=== PATIENT | female | born 1990 | race Caucasian/White ===

== ENCOUNTER 2018-04-26 16:36 | Emergency (ER) | payer SELFPAY ==
[2018-04-26 16:43] VITALS: BP 130/75; PULSE 88; RESP 16; TEMP 37; O2SAT 98
[2018-04-26 18:00] VITALS: RESP 16
--- NOTE | 2018-04-26 19:26 | NUR.NOTE ---
pt noted to not be in [facility]. rn searched for pt and checked bathrooms it is believed the PT eloped Nursing Note:
--- NOTE | 2018-04-26 20:25 | NUR.NOTE ---
Nursing Note: went out to get pt and she was gone another pt stated that she told her that she was tied of waiting and left without being seen
== END 2018-04-26 19:19 ==
PROVIDERS: PCP Family Medicine
DX: Z53.21 Procedure and treatment not carried out due to patient leaving prior to being seen by health care provider (principal)

== ENCOUNTER 2018-06-22 18:14 | Emergency (ER) | payer SELFPAY ==
[2018-06-22 18:19] VITALS: BP 122/55; PULSE 86; RESP 18; TEMP 36.7; O2SAT 97
--- NOTE | 2018-06-22 18:49 | W.ED.GENAD ---
Discharge Plan Disposition Patient Disposition: HOME Condition: Stable Discharge Details Chief Complaint: GenMedical Clinical Impression: First trimester bleeding Primary Care Provider: Mikal Vasquez ED Provider: Bandar Forrester Discharge Instructions Instructions: First Trimester Vaginal Bleed (ED) Additional Instructions: Return immediately to the emergency department if you have any significant worsening of your bleeding, pain, or any further concerns. Otherwise please follow-up with diagnostic imaging tomorrow for outpatient ultrasound and follow-up with women's wellness tomorrow for arrangement of scheduling your appointment Referrals: [facility] [Provider Group] (Call the office tomorrow for arrangement of follow-up appointment) Discharge Data Discharge Date/Time-TO BE ENTERED AT DEPARTURE: 06/22/18 21:55 Medical Decision Making Patient presenting the emergency department for chief complaint of vaginal bleeding. Patient states very mild spotting that is been occurring over the past week. Patient accidentally missed her women's wellness appointment today for concern of possible miscarriage. This is patient's second with first ending in spontaneous miscarriage. Patient denies any pain or discomfort and states occasional cramping. Physical exam is unremarkable with no suprapubic tenderness. Plan to check labs for Rh type and quant as patient states that last menstrual period was approximately 1 month ago. Highly suspicious for threatened miscarriage but at this time doubt ectopic due to denying of pain and no pain on palpation of lower abdomen and suprapubic region. Review of patient's lab shows hCG quantitative that corresponds to approximately 4-6 weeks of otherwise nondiagnostic labs with no significant anemia noted. Did call and consult OB due to no ultrasound availability and poor weather conditions for transport. After discussion with Dr. Garay we both agree that patient is safe to be discharged home with close return precautions for any significant change in vaginal bleeding, increase in pain or discomfort, or further concerns by patient to return but at this time doubt ectopic . Concern for first trimester bleeding versus threatened miscarriage. Outpatient orders for ultrasound were placed in the computer for patient to obtain ultrasound tomorrow and to follow-up with women's wellness. Given patient's negative Rh type patient was given RhoGam as directed by Dr. Garay. after thorough discussion of return precautions patient states that she had low concern for ectopic with but was more concerned for miscarriage as she states very little pain but similar feeling to her previous miscarriage. After discussion of diagnosis and plan of care patient has no further needs, questions, or concerns and states clear understanding to return to the emergency department for any worsening symptoms or further concerns. Lab Data Lab results reviewed: Yes I reviewed the patient's lab results. HPI General Mode of arrival: ambulatory. Date/Time Provider Initiated Documentation: 06/22/18 18:23. Limitations to Documentation: no limitations. Information obtained by: patient and RN notes reviewed. History of Present Illness 27 year old F presents to the emergency department with the chief complaint of Vaginal bleed during early , described as mild, Quality is described as other (Occasional cramping, denies current pain), Patient started experiencing this week(s) (1) and it has been constant. No relieving factors improve symptom(s), No exacerbating factors reported . Patient notes no other symptoms.. Patient did receive the following treatments prior to arrival, none Related Data Allergies Allergy/AdvReac Type Severity Reaction Status Date / Time No Known Drug Allergies Allergy Verified 06/22/18 18:22 General Stated Complaint: GenMedical LUCY: 3 Review of Systems Constitutional Denies chills and Denies fever(s) Cardiovascular Denies chest pain and Denies dyspnea Respiratory Denies dyspnea Gastrointestinal Denies abdominal pain, Denies diarrhea, Denies nausea and Denies vomiting Genitourinary Reports as per HPI, Denies pelvic pain, Denies urinary incontinence, Denies urinary hesitancy, Denies urinary urgency, Denies vaginal discharge and Denies vaginal odor Integumentary/Breasts Denies erythema and Denies rash [facility] Medical History Hepatitis C (Chronic) Tobacco use disorder (Chronic 09/25/17) Social History Smoking and Tabacco status: Current every day Exam Const General: cooperative, no acute distress and not ill appearing Orientation: alert, awake and oriented x3 HENMT Mouth: moist mucous membranes Resp Effort & Inspection: normal respiratory effort, able to speak in complete sentences and no respiratory distress Cardio Rate: regular rate Rhythm: regular rhythm GI Inspection: normal to inspection Palpation: soft, no hepatosplenomegaly and nontender Auscultation: normal bowel sounds Back/Spine/Pelvis Back: no CVA tenderness Skin General skin exam: no rashes or lesions noted Course Vital Signs Temperature 36.7 C 02/25/19 18:19 Pulse 86 06/22/18 18:19 Respiratory Rate 18 06/22/18 18:19 Blood Pressure 122/55 L 06/22/18 18:19 Pulse Oximetry 97 06/22/18 18:19 Temperature 36.7 C 06/22/18 18:19 Temperature Source Skin 06/22/18 18:19 Pulse 86 06/22/18 18:19 Respiratory Rate 18 06/22/18 18:19 Blood Pressure 122/55 L 06/22/18 18:19 Pulse Oximetry 97 06/22/18 18:19 Oxygen Delivery Method Room Air 06/22/18 18:19 Oxygen Flow Rate 0 06/22/18 18:19 Pain Level 0 06/22/18 18:19 Lab/Test Results Lab/Test Results: POC- Test(urine) Positive
--- NOTE | 2018-06-22 18:54 | ED.GENADUL_ITS ---
Discharge Plan Disposition Patient Disposition: HOME Condition: Stable Discharge Details Chief Complaint: GenMedical Clinical Impression: First trimester bleeding Primary Care Provider: Mikal Vasquez ED Provider: Bandar Forrester Discharge Instructions Instructions: First Trimester Vaginal Bleed (ED) Additional Instructions: Return immediately to the emergency department if you have any significant worsening of your bleeding, pain, or any further concerns. Otherwise please follow-up with diagnostic imaging tomorrow for outpatient ultrasound and follow-up with women's wellness tomorrow for arrangement of scheduling your appointment Referrals: [facility] [Provider Group] (Call the office tomorrow for arrangement of follow-up appointment) Discharge Data Discharge Date/Time-TO BE ENTERED AT DEPARTURE: 06/22/18 21:55 Medical Decision Making Patient presenting the emergency department for chief complaint of vaginal bleeding. Patient states very mild spotting that is been occurring over the past week. Patient accidentally missed her women's wellness appointment today for concern of possible miscarriage. This is patient's second with first ending in spontaneous miscarriage. Patient denies any pain or discomfort and states occasional cramping. Physical exam is unremarkable with no suprapubic tenderness. Plan to check labs for Rh type and quant as patient states that last menstrual period was approximately 1 month ago. Highly suspicious for threatened miscarriage but at this time doubt ectopic due to denying of pain and no pain on palpation of lower abdomen and suprapubic region. Review of patient's lab shows hCG quantitative that corresponds to approximately 4-6 weeks of otherwise nondiagnostic labs with no significant anemia noted. Did call and consult OB due to no ultrasound availability and poor weather conditions for transport. After discussion with Dr. Garay we both agree that patient is safe to be discharged home with close return precautions for any significant change in vaginal bleeding, increase in pain or discomfort, or further concerns by patient to return but at this time doubt ectopic . Concern for first trimester bleeding versus threatened miscarriage. Outpatient orders for ultrasound were placed in the computer for patient to obtain ultrasound tomorrow and to follow-up with women's wellness. Given patient's negative Rh type patient was given RhoGam as directed by Dr. Garay. after thorough discussion of return precautions patient states that she had low concern for ectopic with but was more concerned for miscarriage as she states very little pain but similar feeling to her previous miscarriage. After discussion of diagnosis and plan of care patient has no further needs, questions, or concerns and states clear understanding to return to the emergency department for any worsening symptoms or further concerns. Lab Data Lab results reviewed: Yes I reviewed the patient's lab results. HPI General Mode of arrival: ambulatory . Date/Time Provider Initiated Documentation: 06/22/18 18:23 . Limitations to Documentation: no limitations . Information obtained by: patient and RN notes reviewed . History of Present Illness 27 year old F presents to the emergency department with the chief complaint of Vaginal bleed during early , described as mild, Quality is described as other (Occasional cramping, denies current pain), Patient started experiencing this week(s) (1) and it has been constant. No relieving factors improve symptom(s), No exacerbating factors reported . Patient notes no other symptoms.. Patient did receive the following treatments prior to arrival, none Related Data Allergies Allergy/AdvReac Type Severity Reaction Status Date / Time No Known Drug Allergies Allergy Verified 06/22/18 18:22 General Stated Complaint: GenMedical LUCY: 3 Review of Systems Constitutional Denies chills and Denies fever(s) Cardiovascular Denies chest pain and Denies dyspnea Respiratory Denies dyspnea Gastrointestinal Denies abdominal pain, Denies diarrhea, Denies nausea and Denies vomiting Genitourinary Reports as per HPI, Denies pelvic pain, Denies urinary incontinence, Denies urinary hesitancy, Denies urinary urgency, Denies vaginal discharge and Denies vaginal odor Integumentary/Breasts Denies erythema and Denies rash [facility] Medical History Hepatitis C (Chronic) Tobacco use disorder (Chronic 09/25/17) Social History Smoking and Tabacco status: Current every day Exam Const General: cooperative, no acute distress and not ill appearing Orientation: alert, awake and oriented x3 HENMT Mouth: moist mucous membranes Resp Effort & Inspection: normal respiratory effort, able to speak in complete sentences and no respiratory distress Cardio Rate: regular rate Rhythm: regular rhythm GI Inspection: normal to inspection Palpation: soft, no hepatosplenomegaly and nontender Auscultation: normal bowel sounds Back/Spine/Pelvis Back: no CVA tenderness Skin General skin exam: no rashes or lesions noted Course Vital Signs Temperature 36.7 C 02/25/19 18:19 Pulse 86 06/22/18 18:19 Respiratory Rate 18 06/22/18 18:19 Blood Pressure 122/55 L 06/22/18 18:19 Pulse Oximetry 97 06/22/18 18:19 Temperature 36.7 C 06/22/18 18:19 Temperature Source Skin 06/22/18 18:19 Pulse 86 06/22/18 18:19 Respiratory Rate 18 06/22/18 18:19 Blood Pressure 122/55 L 06/22/18 18:19 Pulse Oximetry 97 06/22/18 18:19 Oxygen Delivery Method Room Air 06/22/18 18:19 Oxygen Flow Rate 0 06/22/18 18:19 Pain Level 0 06/22/18 18:19 Lab/Test Results Lab/Test Results: POC- Test(urine) Positive
[2018-06-22 19:10] LABS: Bilirubin Negative (Negative); Blood Large (Negative); Clarity Sl Cloudy; Glucose Negative (Negative); Ketones Trace mg/dL (Negative); Leukocyte Esterase Negative (Negative); Nitrite Negative (Negative); Specific Gravity 1.025 (1.005-1.025); Urobilinogen 0.2 EU/dL (Up TO 0.2)
[2018-06-22 19:24] LABS: Abs Immature Grans 0.01 k/cumm (0.0-0.09); Absolute Basophil Count 0.03 k/cumm (0.0-0.2); Absolute Eosinophil Count 0.33 k/cumm (0.0-0.7); Absolute Lymphocyte Count 3.56 k/cumm (1.2-3.4); Absolute Monocyte Count 0.93 k/cumm (0.11-0.7); Absolute Neutrophil Count 5.27 k/cumm (1.2-6.7); Basophils % 0.3; Eosinophils % 3.3; HCT 39.4 % (36.0-46.0); HGB 13.4 g/dL (12.0-15.5); Immature Grans % 0.1; Lymphocytes % 35.1; Mean Corpuscular Hemoglobin 29.3 pg (27.0-33.0); Monocytes % 9.2; Platelet Count 289 x1000/uL (130-400); RBC 4.58 m/cumm (4.00-5.20); RBC Distribution Width 12.7 % (11.7-14.6); White Blood Cell Count 10.13 k/cumm (4.4-10.8)
[2018-06-22 19:41] LABS: Bacteria Many HPF (Negative); C & S Indicated? No/Sq. Contamination; Casts Negative LPF (Negative); Crystals Mod Calcium Oxalate HPF (Negative); Epithelial Cells Many HPF (Negative); Mucus Negative (Negative); Other Cells Negative (Negative)
[2018-06-22 20:04] LABS: ALT 36 U/L (12-78); AST 19 U/L (15-37); Albumin 3.5 g/dL (3.4-5.0); Alkaline Phosphatase 62 U/L (46-116); Anion Gap 5.3 mmol/L (3-11); BUN 7 mg/dL (7-18); Bilirubin, Total 0.3 mg/dL (0.2-1.0); CO2 28.7 mmol/L (21.0-32.0); CREATININE 0.76 mg/dL (0.55-1.02); Calcium 8.9 mg/dL (8.5-10.1); Chloride 105 mmol/L (98-107); Glucose 87 mg/dL (70-100); Potassium 3.5 mmol/L (3.5-5.1); Sodium 139 mmol/L (136-145); Total Protein 7.3 g/dL (6.4-8.2)
[2018-06-22 20:11] LABS: HCG Quant, Pregnancy 19422 mIU/mL (1-3)
== END 2018-06-22 21:55 | disposition home or self-care (01) ==
PROVIDERS: Emergency Provider Nurse Practitioner Family; PCP Family Medicine
DX: O20.9 Hemorrhage in early pregnancy, unspecified (principal); Z3A.01 Less than 8 weeks gestation of pregnancy
CPT/HCPCS: 36415; 80053; 86850; 86900; 86901; 90384; 96372; 99284; 81003; 81015; 84702; 85025; J2790

== ENCOUNTER 2018-06-23 08:37 | Outpatient (CLI) | payer SELFPAY ==
--- NOTE | 2018-06-23 12:03 | DI.US_ITS ---
SYMPTOMS/DIAGNOSIS: BLEEDING OBSTETRICAL ULTRASOUND: Many abnormalities cannot be diagnosed. A normal exam does not exclude a congenital anomaly. Radiology No. [id number] LMP: Exam Date: 06/23/18 [facility] wks days on EDC ([facility]) Confirmed: HISTORY: PREDICTED GESTATIONAL AGE NUMBER 6+2 weeks with a range of 5+2 weeks to 7+2 weeks. 1 Determined by___1STUS___LMP___HISTORY__X__ CRL PLACENTA PRESENTATION Grade 0 Cephalic___ Anterior___Posterior___ Breech____ Right Left Transverse(head right___ Fundal___Low-lying___Previa___ Transverse(head left___ Varying BIOMETRY AMNIOTIC FLUID BPD: mm weeks Normal HC: mm weeks Oligo Polyhydramnios AC: mm weeks FL: mm weeks AMNIOTIC FLUID INDEX >26 WK CRL: 5.2 mm 6+2 weeks Cisterna Magna: mm CI: RUQ: LUQ Cerebellum: cm EFW: grams Percentile RLQ: LLQ Total: cms Composite AGE= 6+2 wks EDC by US: 02/14/19 BIOPHYSICAL PROFILE ANATOMY IDENTIFIED SCORE 0/2 Heart: 4-Chamber___Rate:BPM 135 LVOT: RVOT: Amniotic Fluid(>2cms)____ Stomach: Kidneys: Respirations (>30 secs) Bladder: Post. Fossa: Body Flex/Extension 3 vessel cord: Ventricles: cord insertion: Lips:____ Extremity Flex/Extension spinal morphology: Nose: Total Score= Palate: NS=not seen COMMENTS: There is a single living intrauterine gestation. Estimated sonographic age is 6 weeks 2 days based on crown-rump length. cardiac motion was detected with a heart rate of 135 beats per minute. The yolk sac was identified. There is a 2.8 cm corpus luteal cyst on the right ovary. The left ovary is grossly unremarkable. IMPRESSION: Single living intrauterine gestation. Estimated sonographic age is 6 weeks 2 days.
== END 2018-06-23 08:57 ==
PROVIDERS: PCP Family Medicine; Visit Provider Nurse Practitioner Family
DX: Z34.91 Encounter for supervision of normal pregnancy, unspecified, first trimester (principal); O20.8 Other hemorrhage in early pregnancy; N83.11 Corpus luteum cyst of right ovary
CPT/HCPCS: 76817

== ENCOUNTER 2018-07-22 11:21 | Outpatient (CLI) | payer MEDICAID, SELFPAY ==
[2018-07-22 12:14] LABS: Abs Immature Grans 0.02 k/cumm (0.0-0.09); Absolute Basophil Count 0.01 k/cumm (0.0-0.2); Absolute Eosinophil Count 0.21 k/cumm (0.0-0.7); Absolute Lymphocyte Count 2.58 k/cumm (1.2-3.4); Absolute Monocyte Count 0.64 k/cumm (0.11-0.7); Absolute Neutrophil Count 4.88 k/cumm (1.2-6.7); Basophils % 0.1; Eosinophils % 2.5; HCT 37.6 % (36.0-46.0); HGB 12.7 g/dL (12.0-15.5); Immature Grans % 0.2; Lymphocytes % 30.9; Mean Corp. HGB Concentration 33.8 g/dL (32.0-36.0); Mean Corpuscular Hemoglobin 29.1 pg (27.0-33.0); Monocytes % 7.7; Neutrophils % 58.6; Platelet Count 284 x1000/uL (130-400); RBC 4.37 m/cumm (4.00-5.20); RBC Distribution Width 13.1 % (11.7-14.6); White Blood Cell Count 8.34 k/cumm (4.4-10.8)
[2018-07-22 14:53] LABS: TSH (W/Ref FT4) 1.72 uIU/mL (0.358-3.74)
[2018-07-23 10:17] LABS: Rubella IgG Ab (UVM) Positive; Syphilis Serology (RPR) Negative (Negative); Varicella IgG Antibody Positive
[2018-07-23 12:10] LABS: Hepatitis B Surface Ag Negative (NEGAT)
[2018-07-23 12:11] LABS: HIV-1/2 Ag & Ab Screen Negative (NEGAT)
[2018-07-23 12:13] LABS: Hepatitis C Ab w Rflx HCV PCR Reactive (NEGAT)
== END 2018-07-22 11:41 ==
PROVIDERS: PCP Family Medicine; Visit Provider Advanced Practice Midwife
DX: O26.899 Other specified pregnancy related conditions, unspecified trimester (principal); Z34.91 Encounter for supervision of normal pregnancy, unspecified, first trimester; Z67.91 Unspecified blood type, Rh negative; Z11.4 Encounter for screening for human immunodeficiency virus [HIV]; Z11.59 Encounter for screening for other viral diseases; Z01.84 Encounter for antibody response examination
CPT/HCPCS: 36415; 80055; 86787; 86803; 86850; 86900; 86901; 87340; 87389; 84443; 86592; 86762; 86870; 87522

== ENCOUNTER 2018-07-22 13:08 | Outpatient (REF) | payer MEDICAID, SELFPAY ==
[2018-07-22 14:18] LABS: *AMPHETAMINES SCREEN URINE Negative (Negative); *BARBITURATES SCREEN URINE Negative (Negative); *BENZODIAZEPINES SCREEN URINE Negative (Negative); Cannabinoids THC Negative (Negative); Cocaine Screen,Urine POSITIVE (Negative); METHADONE URINE SCREEN Negative (Negative); OPIATES URINE SCREEN Negative (Negative); Tricyclic Antidepressants Negative (Negative)
[2018-07-25 11:49] LABS: Buprenorphine Negative; Norbuprenorphine Negative
== END 2018-07-22 13:28 ==
LOC: LBN 13:08
PROVIDERS: PCP Family Medicine; Visit Provider Advanced Practice Midwife
DX: Z34.91 Encounter for supervision of normal pregnancy, unspecified, first trimester (principal)
CPT/HCPCS: 80307; 87086

== ENCOUNTER 2018-08-03 16:15 | Outpatient (REF) | payer MEDICAID, SELFPAY ==
[2018-08-03 18:00] LABS: *AMPHETAMINES SCREEN URINE Negative (Negative); *BARBITURATES SCREEN URINE Negative (Negative); *BENZODIAZEPINES SCREEN URINE Negative (Negative); Cannabinoids THC Negative (Negative); Cocaine Screen,Urine POSITIVE (Negative); METHADONE URINE SCREEN Negative (Negative); OPIATES URINE SCREEN Negative (Negative)
[2018-08-03 18:14] LABS: Tricyclic Antidepressants Negative (Negative)
[2018-08-06 15:54] LABS: Buprenorphine Negative; Norbuprenorphine Negative
== END 2018-08-03 16:35 ==
LOC: LBN 16:15
PROVIDERS: PCP Family Medicine; Visit Provider Advanced Practice Midwife
DX: O99.321 Drug use complicating pregnancy, first trimester (principal); F19.10 Other psychoactive substance abuse, uncomplicated; Z34.91 Encounter for supervision of normal pregnancy, unspecified, first trimester
CPT/HCPCS: 80307

== ENCOUNTER 2018-08-11 11:06 | Outpatient (CLI) | payer MEDICAID, SELFPAY ==
[2018-08-11 12:29] LABS: ALT 35 U/L (12-78); AST 21 U/L (15-37); Albumin 3.4 g/dL (3.4-5.0); Alkaline Phosphatase 56 U/L (46-116); Bilirubin, Direct 0.08 mg/dL (0.00-0.20); Bilirubin, Total 0.3 mg/dL (0.2-1.0); Total Protein 6.9 g/dL (6.4-8.2)
== END 2018-08-11 11:26 ==
PROVIDERS: PCP Family Medicine; Visit Provider Advanced Practice Midwife
DX: B19.20 Unspecified viral hepatitis C without hepatic coma (principal)
CPT/HCPCS: 36415; 80076

== ENCOUNTER 2018-08-18 01:22 | Outpatient (CLI) | payer MEDICAID, SELFPAY ==
--- NOTE | 2018-08-18 09:32 | DI.US_ITS ---
Predicted Gestational Age: Indication/History:substance abuse,z34.90 13.4 Wks Range: 12.4 to 14.4 Prior US done on: Determined by: First US LMP History EDC by prior US: 02/19/19 For multiple gestations: Baby PLACENTA: Grade: 0-I Location: Anterior Posterior PRESENTATION: RT LT LOW LYING PREVIA Cephalic Trans (Head RT LT ) Varied X Breech BIOMETRY: Anatomy Identified: BPD: 26 mm 14.3 wks 4 chamber Heart Heart Rate 147 BPM HC: 96 mm 14.3 wks LVOT Post Fossa AC: 85 mm 14.6 wks RVOT Ventricles FL: 13 mm 13.6 wks Stomach Nose Bladder Lips Cisterna Magna: mm CI: Kidneys Palate Cerebellum: mm 3 vessel cord Spine EFW: grms % Cord Insertion NS= not seen Composite Age (US) 14.3 wks Many abnormalities cannot be diagnosed. A normal exam does not exclude congenital abnormality. EDC by US 02/13/19 Amniotic Fluid Index: Normal COMMENTS: RUQ: LUQ: RLQ: LLQ: Total: cm Biophysical Profile: Score 0/2 TERRY (>2cm) Respirations (>30 sec) Body flexion/extension Extremity flexion/extension TOTAL SCORE Comparison is made with 06/23/18. The fetus was in variable position during the exam. The placenta is fundal. The biometric measurements correspond to 14 weeks 3 days and an EDC of 02/13/19. cardiac activity is identified. No gross deformities. The amount of amniotic fluid appears normal. IMPRESSION: size is within normal limits.
== END 2018-08-18 01:42 ==
PROVIDERS: PCP Family Medicine; Visit Provider Advanced Practice Midwife
DX: Z34.92 Encounter for supervision of normal pregnancy, unspecified, second trimester (principal); O99.322 Drug use complicating pregnancy, second trimester
CPT/HCPCS: 76815

== ENCOUNTER 2018-08-21 17:40 | Outpatient (REF) | payer MEDICAID, SELFPAY ==
[2018-08-21 21:06] LABS: *AMPHETAMINES SCREEN URINE Negative (Negative); *BARBITURATES SCREEN URINE Negative (Negative); *BENZODIAZEPINES SCREEN URINE Negative (Negative); Cannabinoids THC Negative (Negative); Cocaine Screen,Urine Negative (Negative); METHADONE URINE SCREEN Negative (Negative); OPIATES URINE SCREEN Negative (Negative)
[2018-08-21 21:24] LABS: Tricyclic Antidepressants Negative (Negative)
== END 2018-08-21 18:00 ==
LOC: LBN 17:40
PROVIDERS: PCP Family Medicine; Visit Provider Advanced Practice Midwife
DX: F14.10 Cocaine abuse, uncomplicated (principal); O99.322 Drug use complicating pregnancy, second trimester; Z34.92 Encounter for supervision of normal pregnancy, unspecified, second trimester
CPT/HCPCS: 80307

== ENCOUNTER 2018-08-31 14:13 | Outpatient (CLI) | payer MEDICAID, SELFPAY ==
[2018-08-31 14:27] LABS: Bilirubin Negative (Negative); Blood Negative (Negative); Clarity Clear; Glucose Negative (Negative); Ketones 15 mg/dL (Negative); Leukocyte Esterase Negative (Negative); Nitrite Negative (Negative); Specific Gravity >= 1.030 (1.005-1.025); Urobilinogen 0.2 EU/dL (Up TO 0.2)
[2018-09-03 16:19] LABS: HSV 1 PCR, Varies Positive (Negative); HSV 2 PCR, Varies Negative (Negative)
== END 2018-08-31 14:33 ==
PROVIDERS: PCP Family Medicine; Visit Provider Advanced Practice Midwife
DX: Z34.92 Encounter for supervision of normal pregnancy, unspecified, second trimester (principal); K62.89 Other specified diseases of anus and rectum
CPT/HCPCS: 87529; 81003; 87086

== ENCOUNTER 2018-09-29 12:56 | Outpatient (REF) | payer MEDICAID, SELFPAY ==
[2018-09-29 14:14] LABS: *AMPHETAMINES SCREEN URINE Negative (Negative); *BARBITURATES SCREEN URINE Negative (Negative); *BENZODIAZEPINES SCREEN URINE Negative (Negative); Cannabinoids THC Negative (Negative); Cocaine Screen,Urine Negative (Negative); METHADONE URINE SCREEN Negative (Negative); OPIATES URINE SCREEN Negative (Negative)
[2018-09-29 14:16] LABS: Tricyclic Antidepressants Negative (Negative)
[2018-10-05 07:55] LABS: Buprenorphine Negative; Norbuprenorphine Negative
== END 2018-09-29 13:16 ==
LOC: LBN 12:56
PROVIDERS: PCP Family Medicine; Visit Provider Advanced Practice Midwife
DX: Z34.93 Encounter for supervision of normal pregnancy, unspecified, third trimester (principal)
CPT/HCPCS: 80307

== ENCOUNTER 2018-10-21 12:45 | Outpatient (REF) | payer MEDICAID, SELFPAY ==
[2018-10-21 20:07] LABS: *AMPHETAMINES SCREEN URINE Negative (Negative); *BARBITURATES SCREEN URINE Negative (Negative); *BENZODIAZEPINES SCREEN URINE Negative (Negative); Cannabinoids THC Negative (Negative); Cocaine Screen,Urine Negative (Negative); METHADONE URINE SCREEN Negative (Negative); OPIATES URINE SCREEN Negative (Negative)
[2018-10-21 20:20] LABS: Tricyclic Antidepressants Negative (Negative)
== END 2018-10-21 13:05 ==
LOC: NCHCN 12:45
PROVIDERS: PCP Family Medicine; Visit Provider Advanced Practice Midwife
DX: O26.899 Other specified pregnancy related conditions, unspecified trimester (principal); R30.0 Dysuria; Z34.90 Encounter for supervision of normal pregnancy, unspecified, unspecified trimester
CPT/HCPCS: 80307; 87086

== ENCOUNTER 2018-11-12 11:13 | Outpatient (REF) | payer MEDICAID, SELFPAY ==
[2018-11-12 12:17] LABS: *AMPHETAMINES SCREEN URINE Negative (Negative); *BARBITURATES SCREEN URINE Negative (Negative); *BENZODIAZEPINES SCREEN URINE Negative (Negative); Cannabinoids THC Negative (Negative); Cocaine Screen,Urine Negative (Negative); METHADONE URINE SCREEN Negative (Negative); OPIATES URINE SCREEN Negative (Negative)
[2018-11-12 12:18] LABS: Tricyclic Antidepressants Negative (Negative)
== END 2018-11-12 11:33 ==
LOC: LBN 11:13
PROVIDERS: PCP Family Medicine; Visit Provider Advanced Practice Midwife
DX: Z34.93 Encounter for supervision of normal pregnancy, unspecified, third trimester (principal)
CPT/HCPCS: 80307

== ENCOUNTER 2018-12-01 09:52 | Outpatient (CLI) | payer MEDICAID, SELFPAY ==
[2018-12-01 10:23] LABS: HCT 34.4 % (36.0-46.0); HGB 11.9 g/dL (12.0-15.5); Mean Corp. HGB Concentration 34.6 g/dL (32.0-36.0); Mean Corpuscular Hemoglobin 30.3 pg (27.0-33.0); Mean Corpuscular Volume 87.5 fL (80-95); Mean Platelet Volume 9.8 fL (8.0-11.0); Platelet Count 288 x1000/uL (130-400); RBC 3.93 m/cumm (4.00-5.20); RBC Distribution Width 12.6 % (11.7-14.6); White Blood Cell Count 14.79 k/cumm (4.4-10.8)
[2018-12-01 10:26] LABS: Glucose,1 Hr (Glucola) 146 mg/dL (80-140)
== END 2018-12-01 10:12 ==
PROVIDERS: PCP Family Medicine; Visit Provider Advanced Practice Midwife
DX: Z34.93 Encounter for supervision of normal pregnancy, unspecified, third trimester (principal)
CPT/HCPCS: 36415; 81511; 82950; 85027; 86850; 90384

== ENCOUNTER 2018-12-17 10:48 | Outpatient (CLI) | payer MEDICAID, SELFPAY ==
[2018-12-17 13:54] LABS: Fetal Fibronectin Positive (Negative)
== END 2018-12-17 11:08 ==
PROVIDERS: PCP Family Medicine; Visit Provider Advanced Practice Midwife
DX: O36.8130 Decreased fetal movements, third trimester, not applicable or unspecified (principal); Z3A.30 30 weeks gestation of pregnancy
CPT/HCPCS: 59025; 82731; 87086; 87480; 87510; 87660

== ENCOUNTER 2018-12-17 18:34 | Outpatient (REF) | payer MEDICAID, SELFPAY | END 2018-12-17 18:54 | LOC: LBN 18:34 | PROVIDERS: PCP Family Medicine; Visit Provider Advanced Practice Midwife | DX: Z34.93 Encounter for supervision of normal pregnancy, unspecified, third trimester (principal) | CPT/HCPCS: 87086 ==

== ENCOUNTER 2018-12-18 01:05 | Outpatient (CLI) | payer MEDICAID, SELFPAY ==
--- NOTE | 2018-12-18 12:27 | DI.US_ITS ---
SYMPTOM/DIAGNOSIS: S,D AND RECOMMENDED BY [facility] Z34.90 F19.20 OBSTETRICAL ULTRASOUND: Routine examination was performed. There is a single living intrauterine gestation. Estimated sonographic age is 31 weeks 1 day. The fetus is in the cephalic presentation. heart rate is 147 BPM. A complete anatomic evaluation was not performed at this time. Estimated weight is 1702 grams which is 41st percentile. Amniotic fluid index is 17.4 cm. Visually amniotic fluid appears within normal limits. The placenta is fundal and posterior. No evidence of previa. Cervical length measures 4.7 cm. IMPRESSION: Single living intrauterine gestation. Estimated sonographic age is 31 weeks 1 day. Predicted Gestational Age: Indication/History: 31 +0 Wks Range: 30 +0 to 32 +0 Prior US done on: Determined by: XX First US LMP History EDC by prior US: 02/19/19 For multiple gestations: Baby PLACENTA: Grade: II Location: XX Anterior Posterior PRESENTATION: FUNDAL POSTERIOR Cephalic XX Trans (Head RT LT ) Varied Breech BIOMETRY: Anatomy Identified: BPD: 78 mm 31 +1 wks 4 chamber Heart XX Heart Rate 147 BPM HC: 284 mm 31 +1 wks LVOT Post Fossa AC: 270 mm 31 +1 wks RVOT Ventricles FL: 60 mm 31 +1 wks Stomach XX Nose Bladder Lips Cisterna Magna: mm CI: 83 Kidneys Palate Cerebellum: mm 3 vessel cord Spine EFW: 1702 grms 41 % Cord Insertion NS= not seen Composite Age (US) 31 +1 wks Many abnormalities cannot be diagnosed. A normal exam does not exclude congenital abnormality. EDC by US 02/18/19 Amniotic Fluid Index: Normal COMMENTS: RUQ: 4.24 LUQ: 4.63 RLQ: 5.57 LLQ: 2.98 Total: 17.4 cm Biophysical Profile: Score 0/2 TERRY (>2cm) Respirations (>30 sec) Body flexion/extension Extremity flexion/extension TOTAL SCORE
== END 2018-12-18 01:25 ==
PROVIDERS: PCP Family Medicine; Visit Provider Advanced Practice Midwife
DX: F19.20 Other psychoactive substance dependence, uncomplicated (principal); O99.323 Drug use complicating pregnancy, third trimester
CPT/HCPCS: 76816

== ENCOUNTER 2018-12-28 12:49 | Emergency (ER) | payer MEDICAID, SELFPAY ==
[2018-12-28 12:57] VITALS: BP 120/67; PULSE 73; RESP 16; TEMP 36.6; O2SAT 97
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
[2018-12-28 14:30] VITALS: BP 120/67; PULSE 76; RESP 16; O2SAT 98
== END 2018-12-28 14:30 | disposition home or self-care (01) ==
PROVIDERS: Emergency Provider Student in an Organized Health Care Education/Training Program; PCP Family Medicine
DX: S09.90XA Unspecified injury of head, initial encounter (principal); S09.93XA Unspecified injury of face, initial encounter; W50.0XXA Accidental hit or strike by another person, initial encounter; Z3A.34 34 weeks gestation of pregnancy; O99.333 Smoking (tobacco) complicating pregnancy, third trimester; F17.210 Nicotine dependence, cigarettes, uncomplicated; Z53.29 Procedure and treatment not carried out because of patient's decision for other reasons
CPT/HCPCS: 99282; 99283

== ENCOUNTER 2019-01-21 10:54 | Observation (INO) | payer MEDICAID, SELFPAY ==
[2019-01-21 11:51] LABS: HCT 37.2 % (36.0-46.0); HGB 12.4 g/dL (12.0-15.5); Mean Corp. HGB Concentration 33.3 g/dL (32.0-36.0); Mean Corpuscular Hemoglobin 28.9 pg (27.0-33.0); Mean Corpuscular Volume 86.7 fL (80-95); Mean Platelet Volume 10.8 fL (8.0-11.0); Platelet Count 227 x1000/uL (130-400); RBC 4.29 m/cumm (4.00-5.20); RBC Distribution Width 13.4 % (11.7-14.6); White Blood Cell Count 9.64 k/cumm (4.4-10.8)
[2019-01-21 12:09] LABS: ALT 22 U/L (14-59); AST 16 U/L (15-37); Albumin 2.6 g/dL (3.4-5.0); Alkaline Phosphatase 136 U/L (46-116); Anion Gap 9.3 mmol/L (3-11); BUN 6 mg/dL (7-18); Bilirubin, Total 0.2 mg/dL (0.2-1.0); CO2 21.7 mmol/L (21.0-32.0); CREATININE 0.63 mg/dL (0.55-1.02); Calcium 9.2 mg/dL (8.5-10.1); Chloride 105 mmol/L (98-107); Glucose 97 mg/dL (70-100); Potassium 3.4 mmol/L (3.5-5.1); Sodium 136 mmol/L (136-145); Total Protein 6.9 g/dL (6.4-8.2)
--- NOTE | 2019-01-21 12:09 | DI.US_ITS ---
EXAM: US OB BIOPHYSICAL PROFILE CLINICAL HISTORY: active cocaine, intrauterine at 36+4 weeks. TECHNIQUE: Ultrasound performed using standard protocol. COMPARISON: US OB 2-3 trimester from 12/18/2018 US OB TERRY AND WEIGHT from 01/21/2019 FINDINGS: Biophysical profile score is 8/8. Please see the attached data sheet.
[2019-01-21 14:42] LABS: PROTEIN 39.4 mg/dL
[2019-01-21 14:44] LABS: COMMENT (LAB VIEW ONLY) 260.09 mg/dL; Prot/Crea Ur Ratio 0.15
[2019-01-21 14:55] LABS: *AMPHETAMINES SCREEN URINE Negative (Negative); *BARBITURATES SCREEN URINE Negative (Negative); *BENZODIAZEPINES SCREEN URINE Negative (Negative); Cannabinoids THC Negative (Negative); Cocaine Screen,Urine POSITIVE (Negative); METHADONE URINE SCREEN Negative (Negative); OPIATES URINE SCREEN Negative (Negative)
[2019-01-21 14:57] LABS: Tricyclic Antidepressants Negative (Negative)
[2019-01-21 16:00] LABS: Uric Acid 5.7 mg/dL (2.6-6.0)
[2019-01-25 09:26] LABS: Buprenorphine Negative; Norbuprenorphine Negative
== END 2019-01-21 15:55 | disposition home or self-care (01) ==
PROVIDERS: Advanced Practice Midwife; Admitting Provider Advanced Practice Midwife; PCP Family Medicine; Visit Provider Advanced Practice Midwife
DX: O99.323 Drug use complicating pregnancy, third trimester (principal); O98.313 Other infections with a predominantly sexual mode of transmission complicating pregnancy, third trimester; O99.333 Smoking (tobacco) complicating pregnancy, third trimester; O98.413 Viral hepatitis complicating pregnancy, third trimester; Z36.85 Encounter for antenatal screening for Streptococcus B; F14.90 Cocaine use, unspecified, uncomplicated; F17.210 Nicotine dependence, cigarettes, uncomplicated; Z3A.36 36 weeks gestation of pregnancy; A60.09 Herpesviral infection of other urogenital tract; B19.20 Unspecified viral hepatitis C without hepatic coma
CPT/HCPCS: 36415; 76815; 76816; 80053; 80307; 85027; 86850; 86900; 86901; 96360; 96361; 59025; 76819; 82565; 84156; 84550; 87081; G0378

== ENCOUNTER 2019-01-28 17:12 | Outpatient (REF) | payer MEDICAID, SELFPAY ==
[2019-01-28 14:16] LABS: PROTEIN 23.7 mg/dL
[2019-01-28 14:18] LABS: *AMPHETAMINES SCREEN URINE Negative (Negative); *BARBITURATES SCREEN URINE Negative (Negative); *BENZODIAZEPINES SCREEN URINE Negative (Negative); Cannabinoids THC Negative (Negative); Cocaine Screen,Urine Negative (Negative); METHADONE URINE SCREEN Negative (Negative); OPIATES URINE SCREEN Negative (Negative)
[2019-01-28 14:19] LABS: COMMENT (LAB VIEW ONLY) 98.37 mg/dL; Prot/Crea Ur Ratio 0.24; Tricyclic Antidepressants Negative (Negative)
[2019-02-02 10:42] LABS: Buprenorphine Negative; Norbuprenorphine Negative
== END 2019-01-28 17:32 ==
LOC: LBN 17:12
PROVIDERS: PCP Family Medicine; Referring Provider Advanced Practice Midwife; Visit Provider Advanced Practice Midwife
DX: F19.20 Other psychoactive substance dependence, uncomplicated (principal); O14.93 Unspecified pre-eclampsia, third trimester
CPT/HCPCS: 80307; 82565; 84156

== ENCOUNTER 2019-01-29 11:00 | Observation (INO) | payer MEDICAID, SELFPAY | END 2019-01-29 11:45 | disposition home or self-care (01) | LOC: OBS 12:40 | PROVIDERS: Admitting Provider Advanced Practice Midwife; PCP Family Medicine; Visit Provider Advanced Practice Midwife | DX: O47.1 False labor at or after 37 completed weeks of gestation (principal); Z3A.37 37 weeks gestation of pregnancy; Z03.71 Encounter for suspected problem with amniotic cavity and membrane ruled out | CPT/HCPCS: 87210; G0378 ==

== ENCOUNTER 2019-01-29 15:30 | Inpatient (IN) | payer MEDICAID, SELFPAY ==
[2019-01-29 18:04] LABS: HCT 36.2 % (36.0-46.0); HGB 12.3 g/dL (12.0-15.5); Mean Corpuscular Hemoglobin 29.6 pg (27.0-33.0); Mean Platelet Volume 10.8 fL (8.0-11.0); Platelet Count 259 x1000/uL (130-400); RBC 4.16 m/cumm (4.00-5.20)
[2019-01-29 18:22] LABS: *AMPHETAMINES SCREEN URINE Negative (Negative); *BARBITURATES SCREEN URINE Negative (Negative); *BENZODIAZEPINES SCREEN URINE Negative (Negative); Cannabinoids THC Negative (Negative); Cocaine Screen,Urine Negative (Negative); METHADONE URINE SCREEN Negative (Negative); OPIATES URINE SCREEN Negative (Negative)
[2019-01-29 18:24] LABS: Tricyclic Antidepressants Negative (Negative)
[2019-01-29] MEDS: miSOPROStol 25 MCG TAB 50 MCG PO (18:30)
[2019-01-30] MEDS: Nicotine 4 MG GUM CH (00:13)
[2019-01-30] MEDS: miSOPROStol 50 MCG TAB PO ×2 (08:37→12:57)
[2019-01-30] MEDS: Nicotine 21 MG/24 HR PATCH TD (08:39)
[2019-01-31 07:11] LABS: HCT 34.8 % (36.0-46.0); HGB 11.7 g/dL (12.0-15.5); Mean Corp. HGB Concentration 33.6 g/dL (32.0-36.0); Mean Corpuscular Hemoglobin 29.6 pg (27.0-33.0); Mean Corpuscular Volume 88.1 fL (80-95); Mean Platelet Volume 10.9 fL (8.0-11.0); Platelet Count 236 x1000/uL (130-400); RBC 3.95 m/cumm (4.00-5.20); RBC Distribution Width 14.1 % (11.7-14.6); White Blood Cell Count 11.78 k/cumm (4.4-10.8)
[2019-01-31] MEDS: Hamamelis Leaf/Glycerin 100 EACH BOX PR (09:19)
[2019-01-31] MEDS: Ibuprofen 600 MG TAB PO (09:24)
[2019-01-31] MEDS: Acetaminophen 325 MG TAB 650 MG PO (09:24)
[2019-02-01 13:48] LABS: HIV-1/2 Ag & Ab Screen Negative (NEGAT)
== END 2019-01-31 10:30 | disposition other institution (70) | DRG 806 ==
PROVIDERS: Admitting Provider Advanced Practice Midwife; PCP Family Medicine; Visit Provider Advanced Practice Midwife
DX: O42.02 Full-term premature rupture of membranes, onset of labor within 24 hours of rupture (principal); O98.42 Viral hepatitis complicating childbirth; Z37.0 Single live birth; O98.52 Other viral diseases complicating childbirth; O99.324 Drug use complicating childbirth; O69.89X0 Labor and delivery complicated by other cord complications, not applicable or unspecified; Z3A.37 37 weeks gestation of pregnancy; B19.20 Unspecified viral hepatitis C without hepatic coma; B00.9 Herpesviral infection, unspecified; O99.344 Other mental disorders complicating childbirth; F41.8 Other specified anxiety disorders; F14.10 Cocaine abuse, uncomplicated; Z60.9 Problem related to social environment, unspecified; O75.89 Other specified complications of labor and delivery; Z67.11 Type A blood, Rh negative; O99.334 Smoking (tobacco) complicating childbirth; F17.210 Nicotine dependence, cigarettes, uncomplicated
CPT/HCPCS: 36415; 80053; 80307; 85027; 85461; 86850; 86900; 86901; 87389; 90384; 84550; J2790; J3490

== ENCOUNTER 2019-02-15 12:34 | Outpatient (REF) | payer MEDICAID, SELFPAY | END 2019-02-15 12:54 | LOC: LBN 12:34 | PROVIDERS: PCP Family Medicine; Visit Provider Advanced Practice Midwife | DX: R30.0 Dysuria (principal) | CPT/HCPCS: 87086 ==

== ENCOUNTER 2019-03-16 19:55 | Outpatient (CLI) | payer MEDICAID, SELFPAY | END 2019-03-16 20:15 | PROVIDERS: PCP Family Medicine; Visit Provider Advanced Practice Midwife | DX: Z3A.37 37 weeks gestation of pregnancy (principal) ==

== ENCOUNTER 2019-07-14 11:58 | Outpatient (REF) | payer MEDICAID, SELFPAY ==
[2019-07-14 14:15] LABS: *AMPHETAMINES SCREEN URINE Negative (Negative); *BARBITURATES SCREEN URINE Negative (Negative); *BENZODIAZEPINES SCREEN URINE Negative (Negative); Cannabinoids THC Negative (Negative); Cocaine Screen,Urine POSITIVE (Negative); METHADONE URINE SCREEN Negative (Negative); OPIATES URINE SCREEN Negative (Negative)
[2019-07-14 14:18] LABS: Tricyclic Antidepressants Negative (Negative)
[2019-07-17 10:12] LABS: Buprenorphine Negative; Norbuprenorphine Negative
== END 2019-07-14 12:18 ==
LOC: LBN 11:58
PROVIDERS: PCP Nurse Practitioner; Visit Provider Advanced Practice Midwife
DX: F14.10 Cocaine abuse, uncomplicated (principal); F32.89 Other specified depressive episodes
CPT/HCPCS: 80307

== ENCOUNTER 2019-09-03 03:17 | Outpatient (CLI) | payer MEDICAID, SELFPAY ==
[2019-09-03 13:22] LABS: HCG Quant, Pregnancy 6615 mIU/mL (1-3)
== END 2019-09-03 03:37 ==
PROVIDERS: Nurse Practitioner Women's Health; PCP Internal Medicine; Visit Provider Nurse Practitioner Family
DX: Z32.01 Encounter for pregnancy test, result positive (principal)
CPT/HCPCS: 36415; 84702

== ENCOUNTER 2020-12-16 10:36 | Emergency (ER) | payer MEDICAID, SELFPAY ==
[2020-12-16 10:42] VITALS: BP 126/81; PULSE 72; RESP 16; TEMP 37.1; O2SAT 99
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
[2020-12-16] MEDS: Normal Saline 1,000 ML 1000 ML IV (11:17)
[2020-12-16 11:18] LABS: Abs Immature Grans 0.02 10^3/uL (0.0-0.06); Absolute Basophil Count 0.03 10^3/uL (0.0-0.2); Absolute Eosinophil Count 0.29 10^3/uL (0.0-0.7); Absolute Lymphocyte Count 2.04 10^3/uL (1.2-3.4); Absolute Monocyte Count 0.62 10^3/uL (0.1-0.8); Absolute Neutrophil Count 4.69 10^3/uL (1.2-6.7); Basophils % 0.4; Eosinophils % 3.8; HCT 43.2 % (36.0-46.0); HGB 14.4 g/dL (11.2-15.7); Immature Grans % 0.3; Lymphocytes % 26.5; MCH 29.5 pg (27.0-33.0); MCHC 33.3 % (32.0-36.0); MCV 88.5 fL (80-95); MPV 9.8 fL (8.0-11.0); Monocytes % 8.1; Neutrophils % 60.9; Nucleated RBC 0 %; Platelet Count 257 10^3/uL (130-400); RBC 4.88 10^6/uL (3.93-5.22); RDW 12.2 % (11.7-14.6); RDW-SD 40.2 fL; WBC 7.69 10^3/uL (4.4-10.8)
[2020-12-16 11:24] LABS: ALT 51 U/L (14-59); AST 29 U/L (15-37); Albumin 4.1 g/dL (3.4-5.0); Alkaline Phosphatase 65 U/L (46-116); Anion Gap 10.6 mmol/L (3-11); BUN 14 mg/dL (7-18); Bilirubin, Total 0.5 mg/dL (0.2-1.0); CO2 26.4 mmol/L (21.0-32.0); CREATININE 0.9 mg/dL (0.55-1.02); Calcium 9.2 mg/dL (8.5-10.1); Chloride 104 mmol/L (98-107); Glucose 148 mg/dL (74-106); Potassium 3.4 mmol/L (3.5-5.1); Sodium 141 mmol/L (136-145); Total Protein 8.1 g/dL (6.4-8.2)
[2020-12-16] MEDS: Omnipaque 350 MG/ML 100 ML BTL IJ (12:13)
[2020-12-16] MEDS: Normal Saline Flush 10 ML SYR IVP (12:14)
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
[2020-12-16 12:50] VITALS: BP 126/81; PULSE 72; RESP 16; O2SAT 99
== END 2020-12-16 12:54 | disposition home or self-care (01) ==
PROVIDERS: Emergency Provider Physician Assistant; PCP Internal Medicine
DX: S19.89XA Other specified injuries of other specified part of neck, initial encounter (principal); S06.0X0A Concussion without loss of consciousness, initial encounter; Y04.2XXA Assault by strike against or bumped into by another person, initial encounter
CPT/HCPCS: 36415; 70491; 80053; 81025; 96360; 99285; 70450; 72125; 85025; 99284; J3490

== ENCOUNTER 2023-03-04 13:31 | Emergency (ER) | payer MEDICAID, SELFPAY ==
[2023-03-04 13:33] VITALS: BP 170/75; PULSE 83; RESP 20; TEMP 37; O2SAT 97
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
--- NOTE | 2023-03-04 13:45 | DI.RAD_ITS ---
Exam(s) XR TIB/FIB LT EXAM: XR TIB/FIB LT CLINICAL HISTORY: proximal pain. TECHNIQUE: 2D digital imaging was performed. COMPARISON: No exams were available for comparison FINDINGS: Two views. There is subcutaneous soft tissue density anterior to the upper tibia. No air in the soft tissues. No radiopaque foreign body. No fractures. Bone density normal. Anterior tibial tubercle unremarkab le. IMPRESSION: Soft tissue findings as above. No fracture evident. DATA REPOSITORY: RADIATION DOSE DELIVERED:
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
== END 2023-03-04 15:54 | disposition left against medical advice (07) ==
PROVIDERS: Emergency Provider Physician Assistant
DX: M71.561 Other bursitis, not elsewhere classified, right knee (principal); M71.562 Other bursitis, not elsewhere classified, left knee; S06.0X0A Concussion without loss of consciousness, initial encounter; V43.52XA Car driver injured in collision with other type car in traffic accident, initial encounter; Z53.21 Procedure and treatment not carried out due to patient leaving prior to being seen by health care provider
CPT/HCPCS: 73562; 99284; 70450; 72125; 73590; 99283

== ENCOUNTER 2023-03-12 08:56 | Emergency (ER) | payer MEDICAID, SELFPAY ==
[2023-03-12 09:01] VITALS: BP 130/72; PULSE 89; RESP 20; TEMP 37.1; O2SAT 97
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
[2023-03-12 09:38] LABS: Lactate 1.3 mmol/L (0.6-1.4)
[2023-03-12 09:39] LABS: Abs Immature Grans 0.02 10^3/uL (0.0-0.06); Absolute Basophil Count 0.05 10^3/uL (0.0-0.2); Absolute Eosinophil Count 0.22 10^3/uL (0.0-0.7); Absolute Lymphocyte Count 3.32 10^3/uL (1.2-3.4); Absolute Monocyte Count 0.86 10^3/uL (0.1-0.8); Absolute Neutrophil Count 4.53 10^3/uL (1.2-6.7); Basophils % 0.6; Eosinophils % 2.4; HCT 46.7 % (36.0-46.0); HGB 15.8 g/dL (11.2-15.7); Immature Grans % 0.2; Lymphocytes % 36.9; MCH 28.8 pg (27.0-33.0); MCHC 33.8 % (32.0-36.0); MCV 85 fL (80-95); MPV 9.7 fL (8.0-11.0); Monocytes % 9.6; Neutrophils % 50.3; Platelet Count 271 10^3/uL (130-400); RBC 5.48 10^6/uL (3.93-5.22); RDW 13.1 % (11.7-14.6)
[2023-03-12] MEDS: ACETAMINOPHEN 1,000 MG/100 ML BTL 400 MG IVPB (09:42)
[2023-03-12] MEDS: Normal Saline 1,000 ML 1000 ML IV (09:43)
[2023-03-12 09:57] LABS: ALT 54 U/L (14-59); AST 23 U/L (15-37); Alkaline Phosphatase 79 U/L (46-116); Anion Gap 8.4 mmol/L (3-11); BUN 13 mg/dL (7-18); Bilirubin, Total 0.4 mg/dL (0.2-1.0); CO2 27.6 mmol/L (21.0-32.0); CREATININE 0.9 mg/dL (0.55-1.02); Chloride 104 mmol/L (98-107); Estimated GFR 86.57 (mL/min/1.73m2); Glucose 95 mg/dL (74-106); Potassium 3.9 mmol/L (3.5-5.1); Sodium 140 mmol/L (136-145); Total Protein 8.2 g/dL (6.4-8.2)
[2023-03-12] MEDS: Omnipaque 350 MG/ML 100 ML BTL IJ (10:01)
[2023-03-12] MEDS: Normal Saline - Diluent 50 ML VIAL IJ (10:04)
[2023-03-12] MEDS: CLINDAMYCIN 600 MG/50 ML BAG 100 MG IVPB (10:15)
== END 2023-03-12 11:41 | disposition home or self-care (01) ==
PROVIDERS: Emergency Provider Student in an Organized Health Care Education/Training Program
DX: S71.111A Laceration without foreign body, right thigh, initial encounter (principal); W26.0XXA Contact with knife, initial encounter; F17.210 Nicotine dependence, cigarettes, uncomplicated
CPT/HCPCS: 73706; 80053; 86850; 86900; 86901; 96365; 96375; 99285; 83605; 85025; 99284; J0131; J3490

== ENCOUNTER 2023-08-20 07:45 | Emergency (ER) | payer MEDICAID, SELFPAY ==
[2023-08-20 07:48] VITALS: BP 138/67; PULSE 82; RESP 18; TEMP 36.6; O2SAT 100
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
--- NOTE | 2023-08-20 08:21 | NUR.NOTE ---
Referral given to Care Managers for assistance with housing, insurance, addiction help ([employer]), and obtaining a primary care provider [facility].
== END 2023-08-20 08:37 | disposition home or self-care (01) ==
PROVIDERS: Emergency Provider Emergency Medicine
DX: R10.84 Generalized abdominal pain (principal); O09.32 Supervision of pregnancy with insufficient antenatal care, second trimester; Z59.01 Sheltered homelessness; F14.90 Cocaine use, unspecified, uncomplicated; F10.90 Alcohol use, unspecified, uncomplicated
CPT/HCPCS: 99282

== ENCOUNTER 2023-08-20 10:09 | Outpatient (REF) | payer MEDICAID, SELFPAY ==
[2023-08-20 14:32] LABS: *AMPHETAMINES SCREEN URINE Negative (Negative); *BARBITURATES SCREEN URINE Negative (Negative); *BENZODIAZEPINES SCREEN URINE Negative (Negative); Cannabinoids THC Negative (Negative); Cocaine Screen,Urine Positive (Negative); METHADONE URINE SCREEN Negative (Negative); OPIATES URINE SCREEN Negative (Negative); Tricyclic Antidepressants Negative (Negative)
[2023-08-21 11:53] LABS: Fentanyl Scr w/Rfx Confirm Negative ng/mL (<1)
[2023-08-21 13:13] LABS: Chlamydia Result Negative (Negative); GC Result Negative (Negative)
[2023-08-26 09:45] LABS: Buprenorphine Negative ng/mL (Cutoff: 5.0); Norbuprenorphine Negative ng/mL (Cutoff: 2.5)
== END 2023-08-20 10:10 | disposition home or self-care (01) ==
LOC: LBN 10:09
PROVIDERS: Visit Provider Obstetrics & Gynecology
DX: Z34.92 Encounter for supervision of normal pregnancy, unspecified, second trimester (principal); Z3A.25 25 weeks gestation of pregnancy
CPT/HCPCS: 80307; 80348; 87491; 87591

== ENCOUNTER → 2023-08-27 04:38 | Outpatient (CLI) | payer MEDICAID, SELFPAY ==
--- NOTE | 2023-08-27 07:45 | DI.US_ITS ---
Exam(s) US OB 2-3 TRIMESTER EXAM: US OB 2-3 TRIMESTER CLINICAL HISTORY: no care,insufficient care,O09.30. TECHNIQUE: Transabdominal obstetrical ultrasound was performed. COMPARISON: US US OB TERRY WEIGHT from 01/21/2019 FINDINGS: There is a single viable intrauterine gestation with cardiac activity identified-146 bpm. Amniotic fluid: There is a normal amount of amniotic fluid. Placental location: The placenta is anterior grade 1,with no evidence of placenta previa.The distance from the cord insertion to the placental margin is 5 cm ANATOMY: A 3 vessel umbilical cord is seen. A four-chamber cardiac view was obtained. Right and left ventricular outflow tracts were imaged. There are no obvious abnormalities of the spinal column evident. There is no obvious abnormal ity of the anterior abdominal wall. stomach and urinary bladder are identified and there is no evidence of hydronephrosis. No abnormalities of the upper lip region are identified. No evidence of choroid plexus cysts i n the brain. Dating parameters place this at approximately 23 weeks gestational age. BPD measures 22 weeks and 5 days HC measures 23 weeks and 0 days AC measures 24 weeks and 1 day FL measures 21 weeks and 6 days Estimated weight is 563 gm-1 pound, 4 ounces. Fetus is at the less than 3rd percentile on the Hadlock scale. IMPRESSION:: Single viable intrauterine gestation which is approximately 23 weeks gestational age, i mplying an ETHAN of 12/24/2023. There are no obvious anomalies evident on today's study. For, the fetus is noted to be less mat n 3rd percentile on the Hadlock scale. There is, however, a question of possible of min inaccurate d ates with respect the last menstrual period. The placenta is anterior with no evidence of placenta previa. There is a normal amount of amniotic fluid. DATA REPOSITORY:
== END ==
PROVIDERS: Visit Provider Obstetrics & Gynecology
DX: O09.32 Supervision of pregnancy with insufficient antenatal care, second trimester (principal); Z3A.25 25 weeks gestation of pregnancy
CPT/HCPCS: 76805

== ENCOUNTER 2023-11-22 04:26 | Inpatient (IN) | payer MEDICAID, SELFPAY ==
--- NOTE | 2023-11-22 03:59 | PLAC_PTH ---
PATIENT: Kary Gupta LOC: OBS U#:[id number] AGE/SX: 33/F ROOM: OBS.303 RE11/22/[address]: Tiny Jones DO : 1990 BED: A DIS: 11/23/2023 SPEC #: [id number] RECD: 11/24/23 11:52 STATUS: EDEL REQ #: [id number] OSITO: 11/22/23 03:[address]: Tiny Jones DEPT: Surgical Specimen RECD BY: Kylah Dhaliwal ENTERED: 11/24/23 11:56 SP TYPE: PLAC OTHR DR: Sarahi Mcclain RN,Risa Damon,Vandana Mcgill,Brigitte Carpio, Shikha Unknown,Unknown Tissues: 1 - PLACENTA (3RD TRIMESTER) Procedures: GROSS AND MICRO LEVEL 5 Comments: [id number]
[2023-11-22 04:30] VITALS: BP 124/99; PULSE 49; RESP 18; TEMP 36.7; O2SAT 100
--- NOTE | 2023-11-22 04:43 | NUR.NOTE ---
Nursing Note: Pt arrived at 0430 via ambukance stretcher with boy in arms. EMT reported delivery at 0354 and placenta at 0359. Pt reports having DCF worker named Johanny Guidry, Pt received IM PItcin shortly after delivery of placenta. VSS. Pt rates pain 09/04. 0448, lab here drawing blood. Pt with little to no care. History of Cigarette and cocaine use.OB and Pedi on way in as of Ambulance send out notification
[2023-11-22 04:59] LABS: HCT 35.6 % (36.0-46.0); HGB 12.2 g/dL (11.2-15.7); MCH 29.6 pg (27.0-33.0); MCHC 34.3 % (32.0-36.0); MCV 86 fL (80-95); MPV 11.1 fL (8.0-11.0); Platelet Count 204 10^3/uL (130-400); RBC 4.12 10^6/uL (3.93-5.22); RDW 12.8 % (11.7-14.6); RDW-SD 39.9 fL; WBC 12.91 10^3/uL (4.4-10.8)
[2023-11-22 05:00] VITALS: BP 126/72; PULSE 55; RESP 16; TEMP 36.9
--- NOTE | 2023-11-22 05:11 | NUR.NOTE ---
Nursing Note:Dr Stein talking to patient about history.
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
[2023-11-22] MEDS: Ibuprofen 600 MG TAB PO ×2 (05:57→13:51)
--- NOTE | 2023-11-22 06:02 | NUR.NOTE ---
Nursing Note: Pt out of bed talking to baby and touching baby.BP done while standing as pt not ready to get back to bed
[2023-11-22 06:04] VITALS: BP 107/72; PULSE 120; RESP 18; O2SAT 97
--- NOTE | 2023-11-22 06:05 | NUR.NOTE ---
Nursing Note:Dr Laguna talking to pt at baby's stabilette, bedside,remains in pts room. Pts pulse elevated, given stool to sit on as she wont return to bed at this time.
[2023-11-22 06:11] LABS: Abs Immature Grans 0.08 10^3/uL (0.0-0.06); Absolute Basophil Count 0.05 10^3/uL (0.0-0.2); Absolute Eosinophil Count 0.08 10^3/uL (0.0-0.7); Absolute Lymphocyte Count 2.44 10^3/uL (1.2-3.4); Absolute Neutrophil Count 9.28 10^3/uL (1.2-6.7); Basophils % 0.4 %; Eosinophils % 0.6 %; Immature Grans % 0.6 %; Neutrophils % 72.4 %
[2023-11-22 07:20] VITALS: BP 120/78; PULSE 95; RESP 20; TEMP 36.9; O2SAT 98
[2023-11-22] MEDS: Dibucaine 1% 28 GM TUBE TP (07:43)
[2023-11-22] MEDS: Hamamelis Leaf/Glycerin 100 EACH BOX PR (07:43)
[2023-11-22] MEDS: Nicotine 21 MG/24 HR PATCH TD ×4 (07:44→20:54)
[2023-11-22 08:09] LABS: *AMPHETAMINES SCREEN URINE Negative (Negative); *BARBITURATES SCREEN URINE Negative (Negative); *BENZODIAZEPINES SCREEN URINE Negative (Negative); Cannabinoids THC Negative (Negative); Cocaine Screen,Urine Positive (Negative); METHADONE URINE SCREEN Negative (Negative); OPIATES URINE SCREEN Negative (Negative)
[2023-11-22 08:10] LABS: Tricyclic Antidepressants Negative (Negative)
--- NOTE | 2023-11-22 09:39 | NUR.NOTE ---
DCF called to notify of as staff have not heard back from the call placed by night baker. This RN spoke with Saqib Parr regarding unintended home delivery followed by positive UDS for Cocaine, which pt admits to. New Intake number for DCF #[phone]. Will record in infants chart as well.Nursing Note:
--- NOTE | 2023-11-22 13:33 | NUR.NOTE ---
Reese from [facility] in to make Safety Plan with family for the weekend. Safety plan printed and placed in chart as well as documented on chart. Safety plan as follows: Hi there,? As discussed, I am forwarding you a copy of our safety plan that our worker will discuss with both mom and dad today. This plan will be in effect until they are able to connect with their assigned worker or another DCF customer relations representative about next steps. A worker will be there shortly, but I will contact you all with an ETA once I have one available.? Expectations/Plan Kamar will remain in the hospital and will not be removed against medical advice. Kary and Juan Manuel will follow medical and care recommendations made by the hospital for Kamar. Eusebio will not use illicit substances or be under the influence of substances while at the hospital with Kamar Eusebio will not engage in unsafe sleep practices with Kamar Kary and Juan Manuel will call [facility]-Centralized Intake and Emergency Services at [phone] on Friday and Friday evening between 6-7pm to check in DCF Centralized Intake will remain in communication with the hospital throughout the weekend for updates. Hospital staff will notify [facility] Centralized Intake and Emergency Services if there are any concerns about Kamar? safety or the plan is not being followed. ? It is expected that this plan will be followed until Kary and Juan Manuel speak with their assigned FSW or DCF designee about next steps. ? As always, if you have any questions or concerns, please contact [facility] Emergency Services through the hotline @ . I am available today until 4:00pm but my colleagues will be available throughout the weekend at all hours if any concerns arise.? Thank you for your support. Warmly,? Saqib Del Angel?(He/Him) Rn Field, [facility] Central Intake and Emergency Services Department for Children and Families Nursing Note:
[2023-11-22] MEDS: RHO(D) Immune Globulin 1,500 UNIT Syringe 1500 UNIT IM (15:02)
[2023-11-22 19:37] VITALS: BP 125/73; PULSE 49; RESP 16; O2SAT 98
[2023-11-22] MEDS: Docusate Sodium 100 MG CAP PO (19:37)
[2023-11-23 00:47] VITALS: TEMP 36.7
[2023-11-23] MEDS: Ibuprofen 600 MG TAB PO (00:48)
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
[2023-11-24 12:46] LABS: Fentanyl Scr w/Rfx Confirm Negative ng/mL (<1)
[2023-11-24 13:04] LABS: Hepatitis B Surface Ag Negative (Negative)
[2023-11-24 13:47] LABS: Hepatitis C Ab w Rflx HCV PCR Reactive (Negative)
[2023-11-24 13:48] LABS: HIV-1/2 Ag & Ab Screen Negative (Negative)
[2023-11-24 13:58] LABS: Syphilis Serology (RPR) Negative (Negative)
[2023-11-24 14:04] LABS: Rubella IgG Ab (UVM) Positive (See Note)
[2023-11-24 14:16] LABS: Chlamydia Result Negative (Negative); GC Result Negative (Negative)
[2023-11-26 12:48] LABS: HCV RNA Detection Quantitative 6160000 IU/mL (Undetected); HCV RNA Qualitative Detected (Undetected)
[2023-11-26 13:13] LABS: Buprenorphine Negative ng/mL (Cutoff: 5.0); Norbuprenorphine Negative ng/mL (Cutoff: 2.5)
== END 2023-11-23 00:53 | disposition home or self-care (01) | DRG 776 ==
PROVIDERS: Admitting Provider Obstetrics & Gynecology; Visit Provider Obstetrics & Gynecology
DX: O99.325 Drug use complicating the puerperium (principal); F14.20 Cocaine dependence, uncomplicated; O98.43 Viral hepatitis complicating the puerperium; Z67.91 Unspecified blood type, Rh negative; O62.3 Precipitate labor; O99.335 Smoking (tobacco) complicating the puerperium; F17.210 Nicotine dependence, cigarettes, uncomplicated; B19.20 Unspecified viral hepatitis C without hepatic coma; Z60.8 Other problems related to social environment
CPT/HCPCS: 36410; 36415; 80307; 80348; 85027; 85461; 86803; 86850; 86900; 86901; 87340; 87389; 87491; 87522; 87591; 90384; 85007; 85025; 86592; 86762; 87070; 87075; 87205; 88307; J2790

== ENCOUNTER 2024-08-09 01:07 | Outpatient (CLI) | payer MEDICAID, SELFPAY ==
--- NOTE | 2024-08-09 06:30 | DI.US_ITS ---
Exam(s) US OB 1ST TRIMESTER EXAM: US OB 1ST TRIMESTER CLINICAL HISTORY: 20wk FAS, unknown LMP, at least 18wks,O09.30,insufficient care. COMPARISON: No exams were available for comparison TECHNIQUE: Transabdominal Transvaginal first trimester obstetrical ultrasound performed. FINDINGS: Sonographic images demonstrate a single intrauterine gestation. motion is noted. No gross abnormalities. Biometry BPD: 22 mm, 13+ 4 weeks HC: 82 mm, 13+ 4 weeks AC: 66 mm, 13+ 2 weeks FL: 9 mm, 12 + 5 weeks Composite Age: 13+ 2 weeks EDC by US: 12 February 2025 Heart Rate: 164BPM IMPRESSION: Single live intrauterine gestation with composite age of 13+ 2 weeks. DATA REPOSITORY:
== END 2024-08-09 01:27 ==
LOC: DI 01:07
PROVIDERS: Visit Provider Advanced Practice Midwife
DX: Z34.82 Encounter for supervision of other normal pregnancy, second trimester (principal); Z3A.13 13 weeks gestation of pregnancy
CPT/HCPCS: 76801

== ENCOUNTER 2024-08-09 13:22 | Outpatient (REF) | payer MEDICAID, SELFPAY ==
[2024-08-09 14:31] LABS: COMMENT (LAB VIEW ONLY) 169.42 mg/dL; PROTEIN 145.5 mg/dL; Prot/Crea Ur Ratio 0.85
[2024-08-09 14:34] LABS: *AMPHETAMINES SCREEN URINE Negative (Negative); *BARBITURATES SCREEN URINE Negative (Negative); *BENZODIAZEPINES SCREEN URINE Negative (Negative); Cannabinoids THC Negative (Negative); Cocaine Screen,Urine Positive (Negative); METHADONE URINE SCREEN Negative (Negative); OPIATES URINE SCREEN Negative (Negative); Tricyclic Antidepressants Negative (Negative)
[2024-08-10 11:51] LABS: Fentanyl Scr w/Rfx Confirm Negative ng/mL (<1)
[2024-08-13 10:25] LABS: Buprenorphine Negative ng/mL (Cutoff: 5.0); Norbuprenorphine Negative ng/mL (Cutoff: 2.5)
== END 2024-08-09 13:23 | disposition home or self-care (01) ==
LOC: LBN 13:22
PROVIDERS: Visit Provider Advanced Practice Midwife
DX: Z34.91 Encounter for supervision of normal pregnancy, unspecified, first trimester (principal); Z87.59 Personal history of other complications of pregnancy, childbirth and the puerperium
CPT/HCPCS: 80307; 80348; 82565; 84156; 87086

== ENCOUNTER 2024-09-03 10:40 | Outpatient (CLI) | payer MEDICAID, SELFPAY ==
[2024-09-03 11:25] LABS: Panorama Kit Sent via Fed Ex
[2024-09-03 11:36] LABS: Abs Immature Grans 0.02 10^3/uL (0.0-0.06); Absolute Basophil Count 0.02 10^3/uL (0.0-0.2); Absolute Lymphocyte Count 2.34 10^3/uL (1.2-3.4); Absolute Monocyte Count 0.41 10^3/uL (0.1-0.8); Absolute Neutrophil Count 6.51 10^3/uL (1.2-6.7); Basophils % 0.2 %; Eosinophils % 1.1 %; HGB 12.6 g/dL (11.2-15.7); Immature Grans % 0.2 %; Lymphocytes % 24.9 %; MCH 28.7 pg (27.0-33.0); MCHC 34.1 % (32.0-36.0); MCV 84 fL (80-95); MPV 9.6 fL (8.0-11.0); Monocytes % 4.4 %; Neutrophils % 69.2 %; Platelet Count 279 10^3/uL (130-400); RBC 4.39 10^6/uL (3.93-5.22); RDW 13.8 % (11.7-14.6); RDW-SD 42.6 fL
[2024-09-03 11:47] LABS: Hemoglobin A1C 4.9 % (<5.7)
[2024-09-03 11:59] LABS: PTT Activated 26.1 sec (20.6-30.2); Prothrombin Time 9.7 sec (9.1-11.1)
[2024-09-03 12:47] LABS: ALT 22 U/L (14-59); AST 14 U/L (15-37); Albumin 3.2 g/dL (3.4-5.0); Alkaline Phosphatase 61 U/L (46-116); Anion Gap 8.7 mmol/L (3-11); BUN 10 mg/dL (7-18); Bilirubin, Total 0.3 mg/dL (0.2-1.0); CO2 26.3 mmol/L (21.0-32.0); CREATININE 0.6 mg/dL (0.55-1.02); Calcium 8.9 mg/dL (8.5-10.1); Chloride 102 mmol/L (98-107); Estimated GFR 119.97 (mL/min/1.73m2); Glucose 152 mg/dL (74-106); Potassium 3.3 mmol/L (3.5-5.1); Sodium 137 mmol/L (136-145); TSH (W/Ref FT4) 1.77 uIU/mL (0.36-3.74)
[2024-09-06 10:32] LABS: Hepatitis B Surface Ag Negative (Negative)
[2024-09-06 11:32] LABS: HIV-1/2 Ag & Ab Screen Negative (Negative); Hepatitis C Ab w Rflx HCV PCR Reactive (Negative)
[2024-09-06 12:34] LABS: Rubella IgG Ab (UVM) Positive (See Note)
[2024-09-06 12:38] LABS: Varicella IgG Antibody Positive (See Note)
[2024-09-06 16:19] LABS: Syphilis IgG w/Reflex Nonreactive (Nonreactive)
[2024-09-07 16:10] LABS: AFP 31.1 ng/mL; GA used in risk estimate Scan estimate; IVF Pregnancy No; Initial or repeat testing Initial testing; Insulin dependent diabetes No; Maternal Weight 127 lbs; Number of Fetuses 1; Prev Pregnancy w/NTD No; RECOMMENDED FOLLOW UP None.; Results Summary Normal risk
[2024-09-08 14:49] LABS: HCV RNA Qualitative Detected (Undetected)
[2024-09-13 14:17] LABS: Result Summary NEGATIVE; Specimen WB Whole Blood
== END 2024-09-03 10:41 | disposition home or self-care (01) ==
PROVIDERS: Advanced Practice Midwife; Visit Provider Advanced Practice Midwife
DX: B19.20 Unspecified viral hepatitis C without hepatic coma (principal); Z87.59 Personal history of other complications of pregnancy, childbirth and the puerperium; Z34.92 Encounter for supervision of normal pregnancy, unspecified, second trimester; O09.522 Supervision of elderly multigravida, second trimester
CPT/HCPCS: 36415; 80053; 81220; 81222; 86787; 86803; 86850; 86900; 86901; 87340; 87389; 87522; 82105; 83036; 84443; 85025; 85610; 85730; 86762; 86780

== ENCOUNTER 2024-09-03 11:47 | Outpatient (REF) | payer MEDICAID, SELFPAY ==
[2024-09-03 13:56] LABS: *AMPHETAMINES SCREEN URINE Negative (Negative); *BARBITURATES SCREEN URINE Negative (Negative); *BENZODIAZEPINES SCREEN URINE Negative (Negative); Cannabinoids THC Negative (Negative); Cocaine Screen,Urine Positive (Negative); METHADONE URINE SCREEN Negative (Negative); OPIATES URINE SCREEN Negative (Negative)
[2024-09-03 14:02] LABS: Tricyclic Antidepressants Negative (Negative)
[2024-09-06 12:25] LABS: Chlamydia Result Negative (Negative); GC Result Negative (Negative)
[2024-09-09 10:23] LABS: Buprenorphine Negative ng/mL (Cutoff: 5.0); Norbuprenorphine Negative ng/mL (Cutoff: 2.5)
== END 2024-09-03 11:48 | disposition home or self-care (01) ==
LOC: LBN 11:47
PROVIDERS: Visit Provider Advanced Practice Midwife
DX: Z34.92 Encounter for supervision of normal pregnancy, unspecified, second trimester (principal); Z3A.16 16 weeks gestation of pregnancy
CPT/HCPCS: 80307; 80348; 87491; 87591

== ENCOUNTER 2025-02-06 14:11 | Inpatient (IN) | payer MEDICAID, SELFPAY ==
[2025-02-06] VITALS (15 sets, daily range): BP systolic 124–182; BP diastolic 66–94; PULSE 59–106; RESP 16–18; TEMP 36.6–37.5
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
[2025-02-06 14:53] LABS: Abs Immature Grans 0.04 10^3/uL (0.0-0.06); HCT 35.4 % (36.0-46.0); HGB 12.0 g/dL (11.2-15.7); Immature Grans % 0.3 %; MCH 27.9 pg (27.0-33.0); MCHC 33.9 % (32.0-36.0); MCV 82 fL (80-95); MPV 10.4 fL (8.0-11.0); Platelet Count 315 10^3/uL (130-400); RBC 4.30 10^6/uL (3.93-5.22); RDW 14.7 % (11.7-14.6); RDW-SD 43.6 fL; WBC 11.75 10^3/uL (4.4-10.8)
[2025-02-06 15:04] LABS: ALT 15 U/L (14-59); AST 11 U/L (15-37); Albumin 2.4 g/dL (3.4-5.0); Alkaline Phosphatase 165 U/L (46-116); Anion Gap 10.6 mmol/L (3-11); BUN 11 mg/dL (7-18); Bilirubin, Total 0.3 mg/dL (0.2-1.0); CO2 25.4 mmol/L (21.0-32.0); Calcium 8.4 mg/dL (8.5-10.1); Chloride 103 mmol/L (98-107); Estimated GFR 115.59 (mL/min/1.73m2); Glucose 133 mg/dL (74-106); Potassium 3.4 mmol/L (3.5-5.1); Sodium 139 mmol/L (136-145); Total Protein 6.8 g/dL (6.4-8.2)
[2025-02-06 15:06] LABS: Hemoglobin A1C 5.1 % (<5.7)
[2025-02-06] MEDS: Lactated Ringers 1,000 ML 125 ML IV (15:09)
[2025-02-06] MEDS: Penicillin G POT. 5,000,000 UNITS in Normal Saline 100 ML 200 UNITS IVPB (15:12)
[2025-02-06 15:59] LABS: PROTEIN 85.3 mg/dL; Prot/Crea Ur Ratio 0.65
[2025-02-06 16:03] LABS: Cannabinoids THC Negative (Negative); METHADONE URINE SCREEN Negative (Negative)
--- NOTE | 2025-02-06 16:54 | W.OBDELIVERY ---
Date of service: 02/06/25 Time of Service: 16:54 OB Labor/ Delivery Information Baby A Delivery Delivery Method: Spontaneaous Presentation: Cephalic Vertex Position: Left Occipital Posterior Estimated Blood Loss: 200 cc's Delivery Outcome: Liveborn Providers Doctor: Taylor Landeros Senior Patient Account Representative: Yane Flores Nurse: Bonnie Singh Nurse: Marisol Benson RN Labor/Delivery Information Number of Babies in Womb: 1 Steroids Given: None Group Beta Strep: Done-Result Unknown (Performed on admission) Antibiotics Administered: Yes Number of Doses of Antibiotics: 1 Rubella Status: Immune Blood Type: A- Varicella Immunity: Immune Born En Route: No Shoulder Dystocia: No Stages of Labor Onset of Labor Date: 02/06/25 Onset of Labor Time: 11:00 Baby A Length-Baby A: 18 in Note: 34 yo G3 now P2224 ( x4) presented to labor and delivery this afternoon for active labor with reported onset at 11 am. She denied and large gushes but did note some light bleeding. An SVE revealed 7-8 / 90 / 0 station with a tense bag and cephalic presentation. Based on the reducibility of the cervix, the tension on the bag, and the patients level of discomfort with unintentional bearing down, I anticipated a relatively monroy delivery. GBS collected (for information to complement assessment of the ) and the room was prepped for anticipated delivery. No lesions were noted on external exam; I discussed the potential need for in the event of any concern for HSV lesions to avoid exposure to the baby. Ms. Gupta exhibited some offense and strongly denied any lesions since its initial presentation. An IV was swiftly initiated and a loading dose of PCN was administered. The patient continued to exhibit considerable discomfort and appeared to bear down with her contractions; however, her fluid remained intact long enough to complete administration of the loading dose of PCN. A second stage huddle was performed; the nurse reraised the concern for the need for a speculum exam to rule out HSV lesions. I discussed with the patient the potential utility of a speculum exam at this point to ensure an absence of HSV lesions; the patient again exhibited offense and stated, I will not have a ! Though, following another explanation of my concerns for the potential harms it could cause the baby (discussed with the hearing aid technician present) she ultimately agreed to a speculum exam. We also discussed the potential, and she was offered, a post-delivery IUD placement of which she was vehemently opposed. At this point, the patient began to exhibit intentional pushing efforts and on exam, the baby was noted to be +2; there was no evidence of lesions on the limited exam. Within 2 pushes, Ms. Oleary water broke to cloudy fluid and she delivered the head in UTE. She was instructed not to push, and an evaluation did not find evidence of nuchal cord. She then delivered the shoulders without issue on her next push, and the baby delivered in a traditional fashion without issue. The baby's mouth was bulb suctioned and immediately placed on the maternal chest. 1 minute of delayed cord clamping was observed, at which point the cord was double clamped and cut by the father of the baby under the guidance of the physician. A section of cord was then set aside for gases and cord blood was collected for assessment. Prophylactic Pitocin was initiated. No need for repairs was appreciated on exam and bleeding was well controlled. The patient was offered a post-delivery IUD once more and again she strongly declined expressing independent interest in OCP's.
--- NOTE | 2025-02-06 18:40 | W.PM.OBPNV1 ---
Date of service: 02/06/25 Time of Service: 18:40 Assessment and Plan Assessment and plan (1) 39 weeks gestation of : Status: Acute Assessment and plan: 34 yo ( x3) presents at 39 1/7 as dated by 13 wk US (ETHAN 02/12/2025) s/p 39 wk - Rh neg / Rub I / VZV I / GBS unknown - complicated by limited care, cocaine use, hepatitis C, HSV, Rh negative status - Intrapartum course complicated by inadequate GBS covered - course pending - Pap smear due - Milestones pending - Lochia pending - Contraception: Pending; pt has expressed independent interest in, pills - depression counseling pending - - - - - - - - - - - - 02/06/2025 (Tigre): Nicoderm patch ordered to avoid nicotine withdrawal. Urine GcC, HIV, RPR, Hep B, Hep C titer pending; [facility] able to perform - - - - - - - - - - - - Subjective Subjective Narrative: Interval update; patient recovering well. Denies concerns but requests to be left alone as she is very tired. Exam Physical Exam Vital signs: Temp Pulse Resp BP 99.1 F 65 16 158/80 H 02/06/25 17:40 02/06/25 18:19 02/06/25 14:30 02/06/25 18:19 Results Hemoglobin/Hematocrit: Hgb 12.0 g/dL (11.2-15.7) 02/06/25 14:30 Hct 35.4 % (36.0-46.0) L 02/06/25 14:30 Abnormal Lab Findings: Abnormal Labs 02/06/25 02/06/25 14:30 15:20 WBC 11.75 H Hct 35.4 L RDW 14.7 H Absolute Neutrophils 8.25 H Potassium 3.4 L Glucose 133 H Calcium 8.4 L AST 11 L Alkaline Phosphatase 165 H Albumin 2.4 L Urine Cocaine Screen Positive A
[2025-02-06 18:54] LABS: HIV 1/2 Ab Rapid Negative (Negative)
[2025-02-07 01:51] VITALS: BP 123/76; PULSE 93; RESP 18; TEMP 37.3
[2025-02-07 04:33] VITALS: BP 149/73; PULSE 78; RESP 18; TEMP 37.3
[2025-02-07 08:13] VITALS: RESP 16; TEMP 36.8
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
[2025-02-07] MEDS: Acetaminophen 325 MG TAB 650 MG PO ×2 (08:29→15:22)
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
--- NOTE | 2025-02-07 11:37 | NUR.NOTE ---
DEMIAN LOTT has visited Kary twice today, they did not give me an update after the second visit. They are aware of the positive urine drug screen. Kary is currently meeting with a defensive line coach as she expresses interest in starting an outpatient treatment program. Brigitte Mgcill from care management has seen her and will also contact community connections.
--- NOTE | 2025-02-07 11:48 | CMPROGNOTE_ITS ---
Date of service: 02/07/25 Time of Service: 11:48 Care Management Progress Note Progress Note Text Progress Note Text: SRIDHAR was consulted to meet with Kary regarding concerns about housing and substance use recovery. Per RN, Kary delivered a baby girl yesterday (Jeff), and DCF is involved, as Kary tested positive for cocaine on admission, and did not seek regular care during her . Kary was lying in bed when CM met with her. She stated that she is very tired, as she didn't sleep well last night; she fell asleep a couple of times during the conversation, and was apologetic upon waking. CM provided validation and empathy. Kary stated that her primary concern is housing, as her and her are currently living in their car. She reported that she met with DCF, and that her having stable housing will be a significant part of her plan. CM discussed options, though limited, including connecting with [facility] prior to discharge, and completing intake with the local [facility] [place] [facility] to be added to their wait list. CM sent a referral to [facility] for additional support and resources. CM also discussed substance use recovery with Kary, who agreed to meet with the financial coach today. CM reached out to the financial coach and coordinated a visit. CM also reached out to MAYNOR Gutierrez at [facility], who will follow up with Kary prior to discharge. Kary stated that she has a therapist that she has been engaging with in the community, and that her is supportive. CM will continue to follow. Social Determinants of Health Screening Will the Patient Participate in the Screening?: Declined to provide Do you worry about having a steady place to live?: choose not to answer
[2025-02-07 11:49] LABS: INR 0.9 (0.9-1.1); Prothrombin Time 9.3 sec (9.1-11.1)
[2025-02-07] MEDS: Nicotine 14 MG/24 HR PATCH TD (12:18)
[2025-02-07 12:30] VITALS: BP 130/85; PULSE 89; RESP 18; TEMP 36.8; O2SAT 97
[2025-02-07 15:36] VITALS: BP 131/75; PULSE 71; RESP 16; TEMP 36.4; O2SAT 97
[2025-02-07 20:00] VITALS: BP 156/83; PULSE 92; RESP 18; TEMP 37.1
[2025-02-07] MEDS: Ibuprofen 600 MG TAB PO (21:45)
[2025-02-07] MEDS: Nicotine 21 MG/24 HR PATCH (21:46)
[2025-02-08] VITALS: BP 113/69; PULSE 90; RESP 18
[2025-02-08 04:10] VITALS: BP 135/65; PULSE 61; RESP 18
[2025-02-08 09:09] VITALS: BP 132/86; PULSE 78; RESP 18; TEMP 36.9; O2SAT 98
[2025-02-08 09:22] LABS: HBs Antibody, Quant 112.8 mIU/mL (See Note); Hepatitis B Surface Ab Positive (See Note)
[2025-02-08 10:25] LABS: Hepatitis C Ab w Rflx HCV PCR Reactive (Negative)
[2025-02-08 10:29] LABS: HIV-1/2 Ag & Ab Screen Negative (Negative)
[2025-02-08 11:01] LABS: Syphilis Serology (RPR) Negative (Negative)
[2025-02-08 11:51] LABS: Fentanyl Scr w/Rfx Confirm Negative ng/mL (<1)
[2025-02-08 14:09] LABS: Chlamydia Result Negative (Negative); GC Result Negative (Negative)
[2025-02-08] MEDS: Ibuprofen 600 MG TAB PO (14:14)
[2025-02-08 14:32] VITALS: BP 124/82
--- NOTE | 2025-02-08 16:19 | PDOC.CMPRO ---
Date of service: 02/08/25 Time of Service: 17:05 Care Management Progress Note Progress Note Text Progress Note Text: The consulting hospitalist contacted regarding the need to establish follow-up care with a primary care provider for Kary. The on-call provider at the time of admission was Radha Graf at [facility]. A follow-up appointment was scheduled by SRIDHAR with Dr. Graf for February 17, 2025, at 10:30 AM, and Kary was informed of the appointment details. also provided Kary with a list of local PCPs for her review to support ongoing care coordination. According to the care team, [facility] is expected to see the patient prior to discharge. Kary reported that while she currently has a phone number on file, she anticipates it may be disconnected soon. The RN has confirmed that [facility] continues to be involved in her case. To assist with discharge planning, CM provided Kary with clothing (shirt and pants). CM will continue to monitor and support Kary?s care transition as appropriate. Social Determinants of Health Screening Will the Patient Participate in the Screening?: Declined to provide Do you worry about having a steady place to live?: choose not to answer
--- NOTE | 2025-02-08 16:20 | PGE_ITS ---
Date of Service Date of service: 02/08/25 Time of Service: 16:57 Assessment and Plan Assessment and plan (1) Chronic HCV complicating , delivered, current hospitalization: Status: Acute Assessment and plan: Chronic HCV infection going back to 2019, repeat VL and HBV serology pending, HIV negative. Per patient likely from IVDU 8 years ago c/w testing that we have. No evidence of cirrhosis/advanced fibrosis (FIB-4 score reassuring) Alkaline phosphatase elevation and albumin low are both normal in . Assuming hep B still negative, she can be treated locally if she estabilishes with PCP. Radha Graf at [facility] is teledoc, who would be good option for Kary. Current treatment would be glecaprevir/pibrentasvir (Mavyret) x 8 weeks or sofobuvir/velpatasvir (Epclusa) x 12 weeks, daily PO, with viral load check 12 weeks after completion. Barriers are logistic. She needs a PCP for regular follow up, a phone number the specialty pharmacy can call to confirm delivery and screening, and a reliable address to take delivery of medication. She states she can use the [facility] center for this purpose. I'd be happy to personally happy to help review a treatment plan with the prescribing clinician as I have a lot of experience treating hepatitis C. She does not need to be off drugs to get treatment, though this is her goal. /partner was previously treated, discussed transmission, recommended retesting him as well. She denies ongoing IVDU. (2) Cocaine abuse affecting , antepartum: Status: Acute Assessment and plan: UDS positive for cocaine She confirms a long history of cocaine use disorder. She denies concurrent use of opioids or alcohol She has tried topiramate, did not help. States she abused buproprion when she was taking this. Has not tried mirtazipine, but depression/sleep are not big issues. She has a h/o ADHD and states cocaine use keeps her level. She has done well with methylfenidate for this, was free of cocaine for 3 years on that therapy per her report. Given the history we have, she may have the best chance at sobriety if she is treated on long acting stimulant therapy with close follow up and monitoring for cocaine use and diversion, along with behavioral support. This would provide engagement in care and regular follow up with accountability. There evidence that people treated with stimulants for ADHD have better outcomes for stimulant use disorders. This would be outpatient. We also discussed mitigating cardiac risk, including smoking cessation. (3) Poor social situation: Status: Acute Assessment and plan: Insecure housing and transportation Very challenging for ongoing medical care DCF involved. 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 We need to confirm she won't loose this coverage after . She has an appointment 02/17 at 10:30am with Radha Graf at [facility] will sign off for now. (4) Tobacco use disorder: Status: Chronic Assessment and plan: On NRT patch, could add gum/lozenge if cravings continue. Subjective Subjective Patient reports: no new complaints, tolerating a regular diet and voiding w/o difficulty; denies nausea, vomiting, shortness of breath or fever Interval history since last seen: Feels okay physically. Tired. She confirms regular cocaine use, doesn't use opioids or drink. She would like to get off drugs, states she has talked to her about it. He is at [facility]. She feels safe with him. Has known about her HCV for years, states used IVD for 1 year 8 years ago. Exam Narrative Exam Narrative: General: This is a pleasant, fatigued woman in no distress. many scars/hyperpigmented macules on skin, no abscesses. HEENT: Normocephalic, atraumatic. No appreciable icterus. CV: RRR Resp: CTAB Abd: upper abdomen is soft, NTND. Liver edge not palpable, no organomegaly. Neuro: awake, alert, no focal deficits, no tremor Objective Last Vital Signs Temp 36.9 C 02/08/25 09:09 Pulse 78 02/08/25 09:09 Resp 18 02/08/25 09:09 BP 124/82 02/08/25 14:32 Pulse Ox 98 02/08/25 09:09 Laboratory Results - last 24 hr 02/06/25 02/06/25 02/06/25 14:30 15:20 18:30 Urine Fentanyl Screen Negative Syphilis Serology Negative Chlamydia DNA Probe Negative Chlamydia/GC DNA Source Not Applicable Hep Bs Antibody Positive Hep Bs Antibody, Quant 112.8 Hepatitis C Antibody HIV 1&2 Ag/Ab, 4th Gen Negative N.gonorrhoeae DNA Probe Negative 02/07/25 11:25 Urine Fentanyl Screen Syphilis Serology Chlamydia DNA Probe Chlamydia/GC DNA Source Hep Bs Antibody Hep Bs Antibody, Quant Hepatitis C Antibody Reactive A HIV 1&2 Ag/Ab, 4th Gen N.gonorrhoeae DNA Probe Time Spent with Patient Time Spent with Patient: 35-49 minutes Time was spent: preparing to see the patient(eg.review tests), obtaining and/or reviewing separately otained hiistory, ordering medications,tests, procedures, r eferring, communicating with other health career services assistant, indepentently interpreting results, counseling the patient and care coordination
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
[2025-02-09 11:56] LABS: HCV RNA Qualitative Detected (Undetected)
== END 2025-02-08 18:51 | disposition home or self-care (01) | DRG 806 ==
PROVIDERS: Advanced Practice Midwife; Family Medicine; Admitting Provider Obstetrics & Gynecology; Visit Provider Obstetrics & Gynecology
DX: O99.324 Drug use complicating childbirth (principal); O10.92 Unspecified pre-existing hypertension complicating childbirth; Z37.0 Single live birth; O98.32 Other infections with a predominantly sexual mode of transmission complicating childbirth; O98.42 Viral hepatitis complicating childbirth; Z59.02 Unsheltered homelessness; Z3A.39 39 weeks gestation of pregnancy; F14.10 Cocaine abuse, uncomplicated; B18.2 Chronic viral hepatitis C; O99.334 Smoking (tobacco) complicating childbirth; F32.A Depression, unspecified; O62.3 Precipitate labor; Z59.82 Transportation insecurity; F17.210 Nicotine dependence, cigarettes, uncomplicated; O99.344 Other mental disorders complicating childbirth
CPT/HCPCS: 00123; 80053; 80307; 86706; 86803; 86850; 86900; 86901; 87340; 87389; 87491; 87522; 87591; 88305; 82565; 83036; 84156; 85025; 85610; 86592; 87081; 88307; 99223; 99232; J2540

== ENCOUNTER 2025-03-02 03:56 | Observation (INO) | payer MEDICAID, SELFPAY ==
[2025-03-02] VITALS (140 sets, daily range): BP systolic 106–198; BP diastolic 56–117; PULSE 44–106; RESP 11–29; TEMP 36.6–38.8; O2SAT 93–100
--- NOTE | 2025-03-02 03:45 | DI.CT_ITS ---
Exam(s) CT ABDOMEN PELVIS W EXAM: CT ABDOMEN PELVIS W CLINICAL HISTORY: severe RUQ pain, 2 weeks post . TECHNIQUE: Imaging Protocol: Axial computed tomography images with coronal and sagittal reformatted images were created and reviewed CONTRAST MATERIAL: Intravenous: Omnipaque-350 75cc Oral: None COMPARISON: None FINDINGS: VISUALIZED LUNG BASES: No nodules nor pleural effusions evident. ABDOMEN: There is no ascites. LIVER: There are no focal hepatic lesions evident. No dilated intrahepatic ducts. GALLBLADDER/BILIARY: No obvious gallbladder pathology. CBD is not dilated. PANCREAS: No evidence of pancreatic mass nor dilatation of the pancreatic duct. SPLEEN: Spleen is not enlarged. No obvious intrasplenic lesions. Splenic and portal veins are patent. ADRENALS: There are no significant adrenal masses. KIDNEYS:There is bilateral hydronephrosis due to large calculi in the proximal collecting systems. On the right side there is 15 x 9 mm obstructing calculus in the upper ureter at the ureteral pelvic junction. There is significant perinephric streaking around the right kidney. Smaller calculi are also noted in the right kidney. On the opposite-left side there is a 1.7 by 0.7 cm calculus in the left renal pelvis with hydronephrosis above this level and perinephric streaking which is mostly around the renal pelvis. Smaller calculi are also noted in left kidney. There are no radiopaque calculi seen in the nondistended urinary bladder. There are no solid renal masses nor cysts in the kidneys.. ABDOMINAL AORTA: Abdominal aorta is not enlarged. LYMPH NODES:There is no retroperitoneal nor paraaortic adenopathy. ABDOMINAL WALL: No evidence of significant anterior abdominal wall nor inguinal hernia. GI: There is no evidence of bowel obstruction, free air, nor abscess. PELVIS: GI: No evidence of appendicitis.No evidence of sigmoid diverticulitis. LYMPH NODES: There is no intrapelvic nor inguinal adenopathy. REPRODUCTIVE: Uterus and ovaries appear age-appropriate. URINARY BLADDER: No calculi nor obvious masses evident OSSEOUS: No fractures and no significant osseous lesions. IMPRESSION: 1. There is bilateral lithiasis and bilateral hydronephrosis. Bilateral hydronephrosis is due to a 15 x 9 mm calculus at the ureteropelvic junction and on the left side related to a 17 x 7 mm calculus in the left renal pelvis. There is perinephric streaking bilaterally, more prominent on the right side. There are additional smaller calculi also evident in both kidneys. Preliminary V rad report was reviewed. RADIATION DOSE DELIVERED: 316.29mGy.cm Total DLP DATA REPOSITORY: All CT scans at this facility are submitted to the National Radiology Data Registry (NRDR) Dose Index Registry (DIR) with the [employer] (ACR). RADIATION OPTIMIZATION: All CT scans at this facility use at least one of these dose optimization techniques: automated exposure control; mA and/or kV adjustment per patient size (includes targeted exams where dose is matched to clinical indication); or iterative reconstruction.
--- NOTE | 2025-03-02 03:45 | RT.EKG_ITS ---
APPROVED REPORT Exam: Resting ECG Reason for Exam: hypertension Patient Location: E HR:52 bpm ECG Measurements Heart Rate 52 AXIS AZ 163 P 55 QRSd 79 QRS 30 QT 504 T 43 QTc 470 Conclusion Slow sinus arrhythmia...V-rate 44- 60, mean< [address] segment or T wave abnormalities to suggest occlusive SD
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
[2025-03-02 04:05] LABS: BE (Venous) 3 mmol/L (-2-3); HCO3 (Venous) 27 mmol/L (23-28); O2 Sat (Venous) 84 %; TCO2 (Venous) 25 mmol/L (24-29); pCO2 (Venous) 40 mmHg (41-51); pO2 (Venous) 47 mmHg
[2025-03-02 04:07] LABS: Abs Immature Grans 0.02 10^3/uL (0.0-0.06); HCT 38.7 % (36.0-46.0); HGB 12.2 g/dL (11.2-15.7); Immature Grans % 0.2 %; MCH 25.8 pg (27.0-33.0); MCHC 31.5 % (32.0-36.0); MCV 82 fL (80-95); MPV 9.0 fL (8.0-11.0); Platelet Count 288 10^3/uL (130-400); RBC 4.72 10^6/uL (3.93-5.22); RDW 14.3 % (11.7-14.6); RDW-SD 42.5 fL; WBC 11.07 10^3/uL (4.4-10.8)
[2025-03-02] MEDS: Ondansetron 4 MG/2 ML VIAL IVP ×2 (04:10→08:28)
[2025-03-02] MEDS: MORPHine 4 MG/ML SYR IVP (04:11)
[2025-03-02] MEDS: Omnipaque 350 MG/ML 100 ML BTL IJ (04:20)
[2025-03-02] MEDS: Normal Saline - Diluent 50 ML VIAL IJ (04:20)
[2025-03-02] MEDS: Normal Saline Flush 10 ML SYR IVP ×2 (04:20→08:29)
[2025-03-02 04:23] LABS: Lipase 29 U/L (<78)
[2025-03-02 04:27] LABS: ALT 23 U/L (14-59); AST 16 U/L (15-37); Albumin 3.5 g/dL (3.4-5.0); Alkaline Phosphatase 83 U/L (46-116); Anion Gap 8.1 mmol/L (3-11); BUN 14 mg/dL (7-18); Bilirubin, Total 0.4 mg/dL (0.2-1.0); CO2 28.9 mmol/L (21.0-32.0); Calcium 9.1 mg/dL (8.5-10.1); Chloride 104 mmol/L (98-107); Glucose 150 mg/dL (74-106); Magnesium 1.7 mg/dL (1.8-2.4); Potassium 3.9 mmol/L (3.5-5.1); Sodium 141 mmol/L (136-145); Total Protein 7.9 g/dL (6.4-8.2)
[2025-03-02 04:32] LABS: Acetaminophen < 2 ug/mL (10-30)
[2025-03-02 04:37] LABS: INR 1.0 (0.9-1.1); PTT Activated 24.5 sec (20.6-30.2); Prothrombin Time 10.3 sec (9.1-11.1)
[2025-03-02 04:46] LABS: LDH 202 U/L (81-234)
[2025-03-02] MEDS: MAGNESIUM SULFATE 4 GM/100 ML BAG IV_INF (04:47)
[2025-03-02] MEDS: NIFEdipine-CR 30 MG TABCR PO (04:50)
[2025-03-02] MEDS: NIFEdipine 10 MG CAP PO ×2 (04:50→06:02)
--- NOTE | 2025-03-02 05:20 | DI.VRAD_ITS ---
PROCEDURE INFORMATION: Exam: CT Abdomen And Pelvis With Contrast Exam date and time: 03/02/2025 4:24 AM Age: 34 years old Clinical indication: Other: Severe ruq pain, 2 weeks post TECHNIQUE: Imaging protocol: Computed tomography of the abdomen and pelvis with contrast. Contrast material: OMNIPAQUE 350; Contrast volume: 75 ml; Contrast route: INTRAVENOUS (IV); COMPARISON: US OB 1ST TRIMESTER 08/09/2024 2:16 PM FINDINGS: Lungs: Lung bases are clear. Liver: Normal. No mass. Gallbladder and biliary ducts: Normal. No calcified stones. No ductal dilation. Pancreas: Normal. No ductal dilation. Spleen: Normal. No splenomegaly. Adrenal glands: Normal. No mass. Kidneys and ureters: There is moderate right hydronephrosis and a 1.5 x 0.9 cm stone at the ureteropelvic junction. Smaller stones are seen in the right renal lower pole measuring up to 5 mm. Small stones are seen in the left renal lower pole measuring up to 4 mm. There is a 1.8 cm stone in the left renal pelvis with mild hydronephrosis . Bilateral perinephric fluid, right side more than left. Stomach and bowel: Unremarkable. No obstruction. No mucosal thickening. Appendix: Normal. Intraperitoneal space: Unremarkable. No free air. No significant fluid collection. Vasculature: Unremarkable. No abdominal aortic aneurysm. Lymph nodes: Unremarkable. No enlarged lymph nodes. Urinary bladder: Unremarkable as visualized. Reproductive: Unremarkable as visualized. Bones/joints: Unremarkable. Soft tissues: Unremarkable. IMPRESSION: 1. Bilateral nephrolithiasis. 2. Moderate right hydronephrosis and 1.5 x 0.9 cm stone in the ureteropelvic junction. 3. Mild left hydronephrosis and 1.8 cm stone in the renal pelvis which is partially obstructing. Dictated and Authenticated by: Taylor Peterson MD. Orderin Berta Vazquez MD
[2025-03-02 06:06] LABS: Glucose Negative (Negative)
[2025-03-02 06:13] LABS: C & S Indicated? Yes; WBC 20-50 HPF (0-5)
[2025-03-02] MEDS: cefTRIAXone 1 GM/50 ML BAG IVPB (06:27)
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
[2025-03-02 06:48] LABS: Cannabinoids THC Negative (Negative)
[2025-03-02 07:16] LABS: Prot/Crea Ur Ratio 0.47
[2025-03-02 07:19] LABS: Lab Add On Test D
[2025-03-02] MEDS: Lactated Ringers 1,000 ML 75 ML IV (08:34)
[2025-03-02] MEDS: MAGNESIUM SULFATE 20 GM/500 ML BAG IV_INF (08:34)
--- NOTE | 2025-03-02 09:13 | CMPROGNOTE_ITS ---
Date of service: 03/02/25 Time of Service: 09:40 Care Management Progress Note Progress Note Text Progress Note Text: CM was consulted by Obstetrics regarding available resources for Kary. Per provider, Kary was unable to attend her previously arranged follow-up appointment scheduled by CM due to phone and transportation insecurity. CM previously informed the patient of Brenda and other available community resources, and offered a pamphlet regarding potential phone funding. Historically, this reason has not met criteria for funding approval. A referral was not submitted, as Brenda would likely be unable to establish contact with the patient in the community under the current circumstances. Patient is aware of how to contact this resource. Radha Graf, PLATFORM CONSULTANT at [facility] [place], is the T-doc taxonomy teacher. Per communication with [place], they have rescheduled Kary’s appointments several times in the past but remain willing to arrange another follow-up. A new appointment has been scheduled for Friday, the , at 13:00 (arrival requested by 12:45). [facility] [place] requests that [facility] fax discharge information at the time of discharge to [phone]. CM communicated this appointment time with RN, and provider. Per RN, she will offer this patient an appointment reminder card. CM will continue to follow. Social Determinants of Health Screening Social Determinants of health last assessed in clinic: 03/02/25 Will the Patient Participate in the Screening?: Yes Do you worry about having a steady place to live?: no Problems where you live: no known problems In the past 12 months, have you had to go without electric, gas, oil or water in your home?: no 1. Within the past 12 months, we worried whether our food would run out before we got money to buy more.: Never true 2. Within the past 12 months, the food we bought just didn't last and we didn't have money to get more.: Never true Has lack of transportation kept you from medical appointments or from doing things needed for daily living?: yes Has anyone in your life made you feel unsafe or unsupported?: no How hard is it for you to pay for the very basics like food, housing, medical care, and heating? Would you say it is:: Somewhat hard Do you want help finding or keeping work or a job?: I do not need or want help If for any reason you need help with day-to-day activities such as bathing, preparing meals, shopping, managing finances, etc., do you get the help you need?: I don’t need any help How often do you feel lonely or isolated from those around you?: Rarely Do you speak a language other than Senegalese at home?: No Does the patient want assistance with any of the above?: No Health Related Social Needs Health related social needs: transportation insecurity (Z59.82), problems related to housing/economic circumstances (Z59.89) and feeling lonely/isolated (Z60.8) Health related social needs details: See history
[2025-03-02 10:15] LABS: Obstetrics Magnesium 4.3 mg/dL (1.8-2.4)
[2025-03-02 12:54] LABS: Magnesium 6.1 mg/dL (1.8-2.4)
[2025-03-02 15:02] LABS: Abs Immature Grans 0.07 10^3/uL (0.0-0.06); HCT 38.9 % (36.0-46.0); HGB 12.4 g/dL (11.2-15.7); Immature Grans % 0.5 %; MCH 26.1 pg (27.0-33.0); MCHC 31.9 % (32.0-36.0); MCV 82 fL (80-95); MPV 8.9 fL (8.0-11.0); Platelet Count 261 10^3/uL (130-400); RBC 4.75 10^6/uL (3.93-5.22); RDW 14.6 % (11.7-14.6); RDW-SD 43.6 fL; WBC 13.30 10^3/uL (4.4-10.8)
[2025-03-02 15:05] LABS: Magnesium 6.8 mg/dL (1.8-2.4)
[2025-03-02 15:13] LABS: ALT 21 U/L (14-59); AST 14 U/L (15-37); Albumin 3.1 g/dL (3.4-5.0); Alkaline Phosphatase 83 U/L (46-116); Anion Gap 10.1 mmol/L (3-11); BUN 9 mg/dL (7-18); Bilirubin, Total 0.3 mg/dL (0.2-1.0); CO2 26.9 mmol/L (21.0-32.0); Calcium 7.8 mg/dL (8.5-10.1); Chloride 99 mmol/L (98-107); Glucose 113 mg/dL (74-106); Potassium 3.8 mmol/L (3.5-5.1); Sodium 136 mmol/L (136-145); Total Protein 7.3 g/dL (6.4-8.2)
--- NOTE | 2025-03-02 16:30 | PGE_ITS ---
Date of Service Date of service: 03/02/25 Time of Service: 16:31 Assessment and Plan Assessment and plan (1) state: Status: Acute Assessment and plan: Pt is a 34yo ( x4) s/p 39wk on 02/06/25. - complicated by limited care, cocaine use, hepatitis C, HSV, nicotine dependence, Rh negative status, Psychosocial / resource concerns - Intrapartum course complicated by inadequate GBS covered - course complicated by cHTN vs pre-E w/o SF vs stimulant-induced HTN (2) Sepsis: Status: Acute Assessment and plan: Pt with development of fever (38.8) and elevated WBC (13) with a left shift this afternoon. She says she doesn't feel well in general though doesn't report significant pain. She received 1g ceftriaxone around 7am today due to a dirty urine. - Vital signs remain stable at this point - Hospitalist consulted for further management - Cefepime and Vancomycin given @ - Hospitalist arranging transport for removal of infected stones. - Will transfer to ICU if transport is not expedient. (3) Bilateral nephrolithiasis: Status: Acute Assessment and plan: - Pt with bilateral kidney stones with moderate hydronephrosis on the right. Urology transfer denied this am. Now pt has development of sepsis likely due to infected stones. Hospitalist arranging transport to tertiary facility for surgical removal. - Pt received 2mg morphine for pain at 16:45 (no prior pain meds throughout the day) (4) History of pre-eclampsia: Status: Acute Assessment and plan: Pt has a h/o pre-eclampsia in a prior and had elevated BPs during her course of her most recent delivery attributed to CHTN vs Pre- eclampsia vs stimulant induced HTN. She presented early this am with severely elevated BPs and RUQ pain and therefore was treated as having pre-eclampsia with severe features, given nifedipine and placed on magnesium sulfate for seizure prophylaxis. Mag levels were monitored given her elevated Creatinine of 1.3 (1.1 on admission this am). Her most recent mag level was 7.4 @16:40. The decision was made to turn the magnesium off at 1700 in preparation for transport given her therapeutic level and impaired kidney function. (5) Cocaine abuse: Status: Acute Assessment and plan: Pt has admitted to cocaine use as recent as 03/01. Her urine drug screen today was positive for cocaine and opioids. (6) Hepatitis C: Status: Chronic Assessment and plan: Hepatitis C viral load: 6,160,00 (11/22/23), 8,960,000 (09/03/24), 9,230,000 (02/07/25) Positive hepatitis C testing dating back as far as June 2018. Patient's liver enzymes still appear to be within normal limits and liver function still appears to be intact based on labs. Multiple attempts have been made to set her up for hepatitis C management outpatient; however, she has never made the appointments. Hepatitis C genotype ordered, today. Subjective Subjective Interval history since last seen: Pt was evaluated earlier this afternoon due to fever and newly heard systolic murmur. Labs were ordered which came back with an elevated white count and left shift. She has been sleeping all day and denies significant pain. She has not received any pain meds since arriving on the floor. Exam Narrative Exam Narrative: Pt sleeping and hard to rouse to answer questions but would speak when persistent. Const General: no acute distress HENMT Head: normocephalic and atraumatic Resp Effort & Inspection: normal respiratory effort and able to speak in complete sentences Auscultation: clear to auscultation bilaterally Cardio Rate: regular rate Rhythm: regular rhythm Heart Sounds: murmur systolic GI Other: Right CVA tenderness. No abdominal or left side tenderness. Objective Last Vital Signs Temp 101.8 F H 03/02/25 14:05 Pulse 87 03/02/25 14:05 Resp 20 03/02/25 14:05 BP 123/84 03/02/25 14:05 Pulse Ox 96 03/02/25 14:05 Laboratory Results - last 24 hr 03/02/25 03/02/25 03/02/25 03:58 05:48 05:58 WBC 11.07 H RBC 4.72 Hgb 12.2 Hct 38.7 MCV 82 MCH 25.8 L MCHC 31.5 L RDW 14.3 Plt Count 288 MPV 9.0 Immature Gran % 0.2 Neutrophils % 74.7 Lymphocytes % 17.5 Monocytes % 6.2 Eosinophils % 1.1 Basophils % 0.3 Nucleated RBC % 0.0 Absolute Neutrophils 8.27 H Absolute Lymphocytes 1.94 Absolute Monocytes 0.69 Absolute Eosinophils 0.12 Absolute Basophils 0.03 PT 10.3 INR 1.0 APTT 24.5 VBG pH 7.45 H VBG pCO2 40 L VBG pO2 47 VBG HCO3 27 VBG Total CO2 25 VBG O2 Saturation 84 VBG Base Excess 3 VBG Lactate 1.2 Sodium 141 Potassium 3.9 Chloride 104 Carbon Dioxide 28.9 Anion Gap 8.1 BUN 14 Creatinine 1.1 H Est GFR (CKD-EPI 2020) 67.20 Glucose 150 H Calcium 9.1 Magnesium 1.7 L Total Bilirubin 0.4 AST 16 ALT 23 Alkaline Phosphatase 83 Lactate Dehydrogenase 202 Total Protein 7.9 Albumin 3.5 Lipase 29 Urine Color Dark Yellow Urine Clarity Cloudy Urine pH 8.5 H Ur Specific [place] 1.015 Urine Protein 100 H Urine Ketones 15 H Urine Blood Moderate H Urine Nitrite Negative Urine Bilirubin Negative Urine Urobilinogen 0.2 Ur Leukocyte Esterase Small H Urine RBC 5-10 H Urine WBC 20-50 H Ur Epithelial Cells Negative Urine Crystals Negative Urine Bacteria Moderate Urine Casts Negative Urine Mucus Moderate Ur Culture Indicated? Yes Ur Random Creatinine 106.93 U Random Total Protein 49.7 H 50.8 U [place] Prot/Creat Ratio 0.47 Urine Glucose Negative Urine Opiates Screen Positive A Urine Methadone Screen Negative Acetaminophen < 2 Ur Barbiturates Screen Negative Ur Tricyclics Screen Negative Ur Amphetamines Screen Negative U Benzodiazepines Scrn Negative Urine Cocaine Screen Positive A Ur THC Screen Negative Hepatitis C Antibody Add-On Test Request ABO/Rh A Negative Antibody Screen NEGATIVE 03/02/25 03/02/25 03/02/25 06:08 06:59 09:30 WBC RBC Hgb Hct MCV MCH MCHC RDW Plt Count MPV Immature Gran % Neutrophils % Lymphocytes % Monocytes % Eosinophils % Basophils % Nucleated RBC % Absolute Neutrophils Absolute Lymphocytes Absolute Monocytes Absolute Eosinophils Absolute Basophils PT INR APTT VBG pH VBG pCO2 VBG pO2 VBG HCO3 VBG Total CO2 VBG O2 Saturation VBG Base Excess VBG Lactate Sodium Potassium Chloride Carbon Dioxide Anion Gap BUN Creatinine Est GFR (CKD-EPI 2020) Glucose Calcium Magnesium Cancelled Total Bilirubin AST ALT Alkaline Phosphatase Lactate Dehydrogenase Total Protein Albumin Lipase Urine Color Urine Clarity Urine pH Ur Specific [place] Urine Protein Urine Ketones Urine Blood Urine Nitrite Urine Bilirubin Urine Urobilinogen Ur Leukocyte Esterase Urine RBC Urine WBC Ur Epithelial Cells Urine Crystals Urine Bacteria Urine Casts Urine Mucus Ur Culture Indicated? Ur Random Creatinine U Random Total Protein U [place] Prot/Creat Ratio Urine Glucose Urine Opiates Screen Urine Methadone Screen Acetaminophen Ur Barbiturates Screen Ur Tricyclics Screen Ur Amphetamines Screen U Benzodiazepines Scrn Urine Cocaine Screen Ur THC Screen Hepatitis C Antibody Cancelled Add-On Test Request D ABO/Rh Antibody Screen 03/02/25 03/02/25 03/02/25 09:40 11:30 12:28 WBC RBC Hgb Hct MCV MCH MCHC RDW Plt Count MPV Immature Gran % Neutrophils % Lymphocytes % Monocytes % Eosinophils % Basophils % Nucleated RBC % Absolute Neutrophils Absolute Lymphocytes Absolute Monocytes Absolute Eosinophils Absolute Basophils PT INR APTT VBG pH VBG pCO2 VBG pO2 VBG HCO3 VBG Total CO2 VBG O2 Saturation VBG Base Excess VBG Lactate Sodium Potassium Chloride Carbon Dioxide Anion Gap BUN Creatinine Est GFR (CKD-EPI 2020) Glucose Calcium Magnesium 4.3 H Cancelled 6.1 H* D Total Bilirubin AST ALT Alkaline Phosphatase Lactate Dehydrogenase Total Protein Albumin Lipase Urine Color Urine Clarity Urine pH Ur Specific [place] Urine Protein Urine Ketones Urine Blood Urine Nitrite Urine Bilirubin Urine Urobilinogen Ur Leukocyte Esterase Urine RBC Urine WBC Ur Epithelial Cells Urine Crystals Urine Bacteria Urine Casts Urine Mucus Ur Culture Indicated? Ur Random Creatinine U Random Total Protein U [place] Prot/Creat Ratio Urine Glucose Urine Opiates Screen Urine Methadone Screen Acetaminophen Ur Barbiturates Screen Ur Tricyclics Screen Ur Amphetamines Screen U Benzodiazepines Scrn Urine Cocaine Screen Ur THC Screen Hepatitis C Antibody Add-On Test Request ABO/Rh Antibody Screen 03/02/25 03/02/25 03/02/25 13:30 14:32 15:30 WBC 13.30 H RBC 4.75 Hgb 12.4 Hct 38.9 MCV 82 MCH 26.1 L MCHC 31.9 L RDW 14.6 Plt Count 261 MPV 8.9 Immature Gran % 0.5 Neutrophils % 75.7 Lymphocytes % 14.0 Monocytes % 9.5 Eosinophils % 0.1 Basophils % 0.2 Nucleated RBC % 0.0 Absolute Neutrophils 10.07 H Absolute Lymphocytes 1.86 Absolute Monocytes 1.26 H Absolute Eosinophils 0.01 Absolute Basophils 0.03 PT INR APTT VBG pH VBG pCO2 VBG pO2 VBG HCO3 VBG Total CO2 VBG O2 Saturation VBG Base Excess VBG Lactate Sodium 136 Potassium 3.8 Chloride 99 Carbon Dioxide 26.9 Anion Gap 10.1 BUN 9 Creatinine 1.3 H Est GFR (CKD-EPI 2020) 55.00 Glucose 113 H Calcium 7.8 L Magnesium Cancelled 6.8 H* Cancelled Total Bilirubin 0.3 AST 14 L ALT 21 Alkaline Phosphatase 83 Lactate Dehydrogenase Total Protein 7.3 Albumin 3.1 L Lipase Urine Color Urine Clarity Urine pH Ur Specific [place] Urine Protein Urine Ketones Urine Blood Urine Nitrite Urine Bilirubin Urine Urobilinogen Ur Leukocyte Esterase Urine RBC Urine WBC Ur Epithelial Cells Urine Crystals Urine Bacteria Urine Casts Urine Mucus Ur Culture Indicated? Ur Random Creatinine U Random Total Protein U [place] Prot/Creat Ratio Urine Glucose Urine Opiates Screen Urine Methadone Screen Acetaminophen Ur Barbiturates Screen Ur Tricyclics Screen Ur Amphetamines Screen U Benzodiazepines Scrn Urine Cocaine Screen Ur THC Screen Hepatitis C Antibody Add-On Test Request ABO/Rh Antibody Screen 03/02/25 03/02/25 03/02/25 17:30 19:30 21:30 WBC RBC Hgb Hct MCV MCH MCHC RDW Plt Count MPV Immature Gran % Neutrophils % Lymphocytes % Monocytes % Eosinophils % Basophils % Nucleated RBC % Absolute Neutrophils Absolute Lymphocytes Absolute Monocytes Absolute Eosinophils Absolute Basophils PT INR APTT VBG pH VBG pCO2 VBG pO2 VBG HCO3 VBG Total CO2 VBG O2 Saturation VBG Base Excess VBG Lactate Sodium Potassium Chloride Carbon Dioxide Anion Gap BUN Creatinine Est GFR (CKD-EPI 2020) Glucose Calcium Magnesium Cancelled Cancelled Cancelled Total Bilirubin AST ALT Alkaline Phosphatase Lactate Dehydrogenase Total Protein Albumin Lipase Urine Color Urine Clarity Urine pH Ur Specific [place] Urine Protein Urine Ketones Urine Blood Urine Nitrite Urine Bilirubin Urine Urobilinogen Ur Leukocyte Esterase Urine RBC Urine WBC Ur Epithelial Cells Urine Crystals Urine Bacteria Urine Casts Urine Mucus Ur Culture Indicated? Ur Random Creatinine U Random Total Protein U [place] Prot/Creat Ratio Urine Glucose Urine Opiates Screen Urine Methadone Screen Acetaminophen Ur Barbiturates Screen Ur Tricyclics Screen Ur Amphetamines Screen U Benzodiazepines Scrn Urine Cocaine Screen Ur THC Screen Hepatitis C Antibody Add-On Test Request ABO/Rh Antibody Screen 03/02/25 23:30 WBC RBC Hgb Hct MCV MCH MCHC RDW Plt Count MPV Immature Gran % Neutrophils % Lymphocytes % Monocytes % Eosinophils % Basophils % Nucleated RBC % Absolute Neutrophils Absolute Lymphocytes Absolute Monocytes Absolute Eosinophils Absolute Basophils PT INR APTT VBG pH VBG pCO2 VBG pO2 VBG HCO3 VBG Total CO2 VBG O2 Saturation VBG Base Excess VBG Lactate Sodium Potassium Chloride Carbon Dioxide Anion Gap BUN Creatinine Est GFR (CKD-EPI 2020) Glucose Calcium Magnesium Cancelled Total Bilirubin AST ALT Alkaline Phosphatase Lactate Dehydrogenase Total Protein Albumin Lipase Urine Color Urine Clarity Urine pH Ur Specific [place] Urine Protein Urine Ketones Urine Blood Urine Nitrite Urine Bilirubin Urine Urobilinogen Ur Leukocyte Esterase Urine RBC Urine WBC Ur Epithelial Cells Urine Crystals Urine Bacteria Urine Casts Urine Mucus Ur Culture Indicated? Ur Random Creatinine U Random Total Protein U [place] Prot/Creat Ratio Urine Glucose Urine Opiates Screen Urine Methadone Screen Acetaminophen Ur Barbiturates Screen Ur Tricyclics Screen Ur Amphetamines Screen U Benzodiazepines Scrn Urine Cocaine Screen Ur THC Screen Hepatitis C Antibody Add-On Test Request ABO/Rh Antibody Screen Time Spent with Patient Time Spent with Patient: >50 minutes Time was spent: preparing to see the patient(eg.review tests), obtaining and/or reviewing separately otained hiistory, ordering medications,tests, procedures, referring, communicating with other health care process manager, indepentently in terpreting results and counseling the patient
[2025-03-02] MEDS: MORPHine 10 MG/ML VIAL 2 MG IVP ×2 (16:45→18:33)
[2025-03-02 17:18] LABS: Magnesium 7.4 mg/dL (1.8-2.4)
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
[2025-03-02] MEDS: CEFEPIME 2 GM in Normal Saline 100 ML IVPB (17:51)
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
[2025-03-02] MEDS: VANCOMYCIN/WATER (PEG) 1.25 GM/250 ML BAG IVPB (18:34)
[2025-03-02 20:28] LABS: HBs Antibody, Qual Positive (See Note); HBs Antibody, Quant 144.3 mIU/mL (See Note); Hepatitis C Ab w Rflx HCV PCR Reactive (Negative)
[2025-03-03 12:33] LABS: Fentanyl Scr w/Rfx Confirm Negative ng/mL (<1)
[2025-03-03 15:03] LABS: HCV RNA Detection Quantitative 12800000 IU/mL (Undetected); HCV RNA Qualitative Detected (Undetected)
== END 2025-03-02 18:55 | disposition short-term general hospital (02) ==
LOC: ER 07:09 → OBS 07:28
PROVIDERS: Obstetrics & Gynecology; Admitting Provider Obstetrics & Gynecology; Emergency Provider Student in an Organized Health Care Education/Training Program; Visit Provider Obstetrics & Gynecology
DX: O10.03 Pre-existing essential hypertension complicating the puerperium (principal); O86.21 Infection of kidney following delivery; O85 Puerperal sepsis; N13.6 Pyonephrosis; O99.325 Drug use complicating the puerperium; F14.10 Cocaine abuse, uncomplicated; R01.1 Cardiac murmur, unspecified; O99.335 Smoking (tobacco) complicating the puerperium; F17.210 Nicotine dependence, cigarettes, uncomplicated; O11.5 Pre-existing hypertension with pre-eclampsia, complicating the puerperium; O98.43 Viral hepatitis complicating the puerperium; B18.2 Chronic viral hepatitis C; Z59.82 Transportation insecurity; R65.20 Severe sepsis without septic shock; O99.43 Diseases of the circulatory system complicating the puerperium
CPT/HCPCS: 00123; 36415; 80053; 80307; 80348; 82805; 83690; 86704; 86706; 86803; 86850; 86900; 86901; 87040; 87340; 87522; 93005; 96365; 96367; 96375; 99291; 74177; 80329; 81003; 81015; 82565; 83605; 83615; 83735; 84156; 85025; 85610; 85730; 87086; 87521; 93010; 99222; G0378; J0692; J0696; J2270; J2405; J3373; J3475; J3490

== ENCOUNTER 2025-03-03 12:30 | Inpatient (IN) | payer MEDICAID, SELFPAY ==
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
[2025-03-03 15:59] VITALS: BP 115/75; PULSE 96; RESP 18; TEMP 39; O2SAT 96
[2025-03-03 16:13] VITALS: BP 115/75; PULSE 96; RESP 18; TEMP 39; O2SAT 96
[2025-03-03] MEDS: MORPHine 2 MG/ML SYR IVP (16:36)
[2025-03-03] MEDS: VANCOMYCIN/WATER (PEG) 1.25 GM/250 ML BAG IVPB (18:15)
[2025-03-03 19:48] VITALS: BP 137/67; PULSE 88; RESP 20; TEMP 37.6; O2SAT 95
[2025-03-03] MEDS: CEFEPIME 2 GM in Normal Saline 100 ML IVPB (21:11)
[2025-03-03 23:43] VITALS: BP 135/76; PULSE 96; RESP 16; TEMP 38.9; O2SAT 92
[2025-03-04] VITALS (9 sets, daily range): BP systolic 117–133; BP diastolic 64–84; PULSE 72–90; RESP 16–18; TEMP 36.4–38.6; O2SAT 92–96
[2025-03-04] MEDS: Acetaminophen 325 MG TAB 650 MG PO ×4 (00:41→22:34)
[2025-03-04] MEDS: CEFEPIME 2 GM in Normal Saline 100 ML IVPB ×3 (05:33→22:00)
[2025-03-04] MEDS: MORPHine 2 MG/ML SYR IVP (05:52)
[2025-03-04 06:49] LABS: HCT 33.0 % (36.0-46.0); HGB 10.4 g/dL (11.2-15.7); MCH 26.1 pg (27.0-33.0); MCHC 31.5 % (32.0-36.0); MCV 83 fL (80-95); MPV 9.1 fL (8.0-11.0); Platelet Count 205 10^3/uL (130-400); RBC 3.98 10^6/uL (3.93-5.22); RDW 14.4 % (11.7-14.6); RDW-SD 43.6 fL; WBC 11.43 10^3/uL (4.4-10.8)
[2025-03-04 07:03] LABS: Anion Gap 6.9 mmol/L (3-11); BUN 17 mg/dL (7-18); CO2 25.1 mmol/L (21.0-32.0); Calcium 7.8 mg/dL (8.5-10.1); Chloride 103 mmol/L (98-107); Glucose 106 mg/dL (74-106); Magnesium 2.1 mg/dL (1.8-2.4); Potassium 3.9 mmol/L (3.5-5.1); Sodium 135 mmol/L (136-145)
[2025-03-04 07:09] LABS: Vancomycin, Random 8.3 ug/mL
[2025-03-04] MEDS: Enoxaparin 40 MG/0.4 ML SYR SC (08:42)
[2025-03-04] MEDS: VANCOMYCIN/WATER (PEG) 1.25 GM/250 ML BAG IVPB ×2 (08:42→22:33)
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
--- NOTE | 2025-03-04 12:39 | PHA.REVIEW2 ---
Pharmacy Admission Review Admission Clinical Review Admission Pharmacy Review: Severe sepsis (Acute) state (Acute) Bilateral nephrolithiasis (Acute) Cocaine abuse (Acute) History of pre-eclampsia (Acute) No Known Drug Allergies Allergy (Verified 02/10/25 09:16) Other (See Comment) Resuscitation Status Full Code Height 5 ft 5 in Weight 65.771 kg Pharmacy Admission Review Renal Dosing Renal Dosing: BUN 17 mg/dL (7-18) 03/04/25 06:39 Creatinine 0.9 mg/dL (0.55-1.02) 03/04/25 06:39 Medications needing adjustments: Reviewed (CrCl 90.59 mL/min) List of meds needing interventions: Current medications are okay Anticoagulation Anticoagulation: Hgb 10.4 g/dL (11.2-15.7) L D 03/04/25 06:39 Hct 33.0 % (36.0-46.0) L 03/04/25 06:39 Plt Count 205 10^3/uL (130-400) 03/04/25 06:39 Creatinine 0.9 mg/dL (0.55-1.02) 03/04/25 06:39 DVT Prophylaxis: Reviewed Medications: Enoxaparin (40mg daily) Opiate Usage Evaluate Pain Scale/Pains Meds: Reviewed (morphine 4mg IVP q4h PRN - 4mg/24hrs) Scheduled Bowel Reg ordered if on Opiates?: No (PRN Miralax) Relevant Labs Relevant Labs: Sodium 135 mmol/L (136-145) L 03/04/25 06:39 Potassium 3.9 mmol/L (3.5-5.1) 03/04/25 06:39 Chloride 103 mmol/L (98-107) 03/04/25 06:39 Magnesium 2.1 mg/dL (1.8-2.4) 03/04/25 06:39 Electrolytes, C-Reactive P, ESR: Reviewed Cardiac Review BP, HR, EF%: Reviewed (BP and HR WNL) QTc Review QTc: Reviewed (470 from 03/02/25) IV to PO Switch IV Medications: Reviewed (cefepime, morphine and vancomycin) Home Meds Home Med List reviewed: Reviewed Relevent Home Meds Not ordered & why?: No known home meds Current Meds Current Medication Order Review: Intervened Comments: Added IV access order set Pharmacy Antibiotic Review Relevant Labs: WBC 11.43 10^3/uL (4.4-10.8) H 03/04/25 06:39 Temperature 37.5 C Temperature 36.5 C Temperature 38.2 C Temperature 38.3 C Temperature 38.3 C Pharmacy Antibiotic Activity: C/S review and Reviewed, no change Comments: Patient is on cefepime and vancomycin, day 1, for severe sepsis/nephrolithiasis. Based on vancomycin level this morning (8.3 @0639) changed dose to 1250mg q12h with predicted AUC of 553. Will order another level if any significant changes in renal function or prolonged therapy required. Blood cultures show no growth at 24 hours and urine culture growing gram positive marylu/gram negative rods.
--- NOTE | 2025-03-04 12:40 | W.PM.PROGNOT ---
Date of Service Date of service: 03/04/25 Time of Service: 12:40 Assessment and Plan Assessment and plan (1) Severe sepsis: Status: Acute Assessment and plan: - Patient meets criteria for severe sepsis with puncture wound 101.8 °F, white blood cell count of 13, creatinine of 1.3 (base line 0.7) and source of infection presumed to be bilateral kidney stones - On admission patient was not febrile nor did she have a white count, and the original plan was for OB service to treat patient for preeclampsia (see below for details), and for urology to be consulted tomorrow morning 05/03/2024 to remove stones - However, since patient is developed severe sepsis, plan now is to transfer to the ICU while [facility] on[facility]call urology service for immediate stone removal - Patient was initially on ceftriaxone in the emergency department which has been changed to vancomycin and cefepime additionally -Systolic murmur increasing suspicion for endocarditis (patient does have history of IV drug use as noted below) -Source control was achieved at [facility] with placement of bilateral ureteral stents - Will continue vancomycin and cefepime - blood cultures negative at 24hrs, will follow-up for final results - Urine cultures growing GNRs, will follow-up for final results (2) Bilateral nephrolithiasis: Status: Acute Assessment and plan: -Potential source of infection as noted above -Bilateral ureteral stents placed as noted above (3) Cocaine abuse: Status: Acute Assessment and plan: - Recent use, last use 03/01 - Drug screen on admission positive for cocaine and opiates (4) Hepatitis C: Status: Chronic Assessment and plan: (As documented by OXYGEN THERAPY TECHNICIAN) -Hepatitis C viral load: 6,160,00 (11/22/23), 8,960,000 (09/03/24), 9,230,000 (02/07/25) -Positive hepatitis C testing dating back as far as June 2018. -Patient's liver enzymes still appear to be within normal limits and liver function still appears to be intact based on labs. -Multiple attempts have been made to set her up for hepatitis C management outpatient; however, she has never made the appointments. -Hepatitis C genotype ordered (5) History of pre-eclampsia: Status: Acute Assessment and plan: - Patient was initially admitted to the OXYGEN THERAPY TECHNICIAN service at [facility] for concern for preeclampsia for which she was treated with IV magnesium as well as nifedipine - However, OXYGEN THERAPY TECHNICIAN team about [facility] did not believe that this was preeclampsia most likely secondary to infectious process (6) state: Status: Acute Assessment and plan: (As documented by OXYGEN THERAPY TECHNICIAN) Pt is a 34yo ( x4) s/p 39wk on 02/06/25. - complicated by limited care, cocaine use, hepatitis C, HSV, nicotine dependence, Rh negative status, Psychosocial / resource concerns - Intrapartum course complicated by inadequate GBS covered - course complicated by cHTN vs pre-E w/o SF vs stimulant-induced HTN Subjective Subjective Interval history since last seen: Patient states that she is in pain but has been able to get some rest after administration of pain medication. Otherwise she has no other complaints or concerns at this time. Exam Narrative Exam Narrative: Fatigued appearing young female lying in bed in moderate distress secondary to pain, ANO x 4, heart regular rate and rhythm with systolic murmur, lungs, auscultation bilaterally, abdomen soft, nontender, nondistended Objective Last Vital Signs Temp 99.5 F 03/04/25 11:21 Pulse 72 03/04/25 11:21 Resp 16 03/04/25 11:21 BP 130/81 03/04/25 11:21 Pulse Ox 95 03/04/25 11:21 Laboratory Results - last 24 hr 03/04/25 06:39 WBC 11.43 H RBC 3.98 Hgb 10.4 L D Hct 33.0 L MCV 83 MCH 26.1 L MCHC 31.5 L RDW 14.4 Plt Count 205 MPV 9.1 Sodium 135 L Potassium 3.9 Chloride 103 Carbon Dioxide 25.1 Anion Gap 6.9 BUN 17 Creatinine 0.9 Est GFR (CKD-EPI 2020) 85.50 Glucose 106 Calcium 7.8 L Magnesium 2.1 Random Vancomycin 8.3 Time Spent with Patient Time Spent with Patient: >50 minutes Time was spent: preparing to see the patient(eg.review tests), obtaining and/or reviewing separately otained hiistory, ordering medications,tests, procedures, referring, communicating with other health complex care nurse practitioner, indepentently interpreting results, counseling the patient and care coordination
[2025-03-04] MEDS: MORPHine 2 MG/ML SYR 4 MG IVP ×3 (12:42→22:35)
[2025-03-04] MEDS: Normal Saline Flush 10 ML SYR IVP ×3 (12:43→22:34)
--- NOTE | 2025-03-04 12:47 | W.NUTRFU ---
Documented by User: Kenny Vargas 03/04/25 14:20 Nutrition Note NOTE: Patient admitted for severe RUQ abdominal pain and N/V 3.5 weeks . Patient has had a full meal cycle in previous stays and reports that meals are very good and she typically eats well while admitted. She reports no issue with chewing, swallowing, or bowell movements. The patient reports no allergies or specific reccomendations. The patient reports no issues with maintaining weight outside of the hospital. She made a request for an additional serving of vegetables in a separate serving dish, preferably cut-up brocolli and/or peppers. Height: 165 cm. Weight: 65.7 kg. BMI: 24.1 kg/m^2. Patient has held a relatively stable weight over the last year per patient record and self-report, though a downtrend in weight has occurred from 82 kg measured in 01/2019 to 65 kg measured in 02/2025. Recent A1c measurements were recorded at 4.9 and 5.1 on labs done in 08/2024 and 01/2025, respectively. Recent hgb/htc labs came in slightly low at 10.4 g/dL and 33%, respectively . Recent calcium labs came in slightly low as well. A nutritional physical exam was not performed, but signs possibly indicative of malnutrition were visible on the facial areas, including recessed orbital cavities and prominent zygomatic bones. Estimated energy requirement: 1,760 kcal/day (MSJ * 1.3 [Ambulatory, out of bed]). Estimated protein requirement: 53 g/d (0.8g/kg actual BW). Estimated fluid requirement: 1,760 mL/day (1mL/kcal/day). Nutrition diagnosis: Low iron status related to recent delivery of a child coupled with possible low iron intake as evidenced by low hemoglobin and hematocrit labs today. Nutrition intervention: No significant intervention required. The patient accepted education on anemia and iron-rich foods to help remedy low iron on recent labs. The patient also accepted education on calcium portions in lue on a history of kidney stones and low calcium on recent labs. Recommend to monitor weight and signs of undernutrition during admittance. Documented by User: Don Pickett RDN 03/04/25 14:20 Date of service: 03/04/25 Time of Service: 13:00 Nutrition Note NOTE: Patient admitted for severe RUQ abdominal pain and N/V 3.5 weeks . Patient has had a full meal cycle in previous stays and reports that meals are very good and she typically eats well while admitted. She reports no issue with chewing, swallowing, or bowell movements. The patient reports no allergies or specific preferences/special needs from kitchen. The patient reports no issues with maintaining weight outside of the hospital. She made a request for an additional serving of vegetables in a separate serving dish, preferably cut-up broccoli and/or peppers. Height: 165 cm. Weight: 65.7 kg. BMI: 24.1 kg/m^2. Patient has held a relatively stable weight over the last year per patient record and self-report, though a downtrend in weight has occurred from 82 kg measured in 01/2019 to 65 kg measured in 02/2025. Recent A1c measurements were recorded at 4.9 and 5.1 on labs done in 08/2024 and 01/2025, respectively. Recent hgb/htc labs came in slightly low at 10.4 g/dL and 33%, respectively . Recent calcium labs came in low as well. A nutritional physical exam was not performed, but signs possibly indicative of malnutrition were visible on the facial areas, including recessed orbital cavities and prominent zygomatic bones. Estimated energy requirement: 1,760 kcal/day (MSJ * 1.3 [Ambulatory, out of bed]). Minimum Estimated protein requirement: 53 g/d (0.8g/kg actual BW). Estimated fluid requirement: 1,760 mL/day (1mL/kcal/day). Nutrition diagnosis: Low iron status related to recent delivery of a child coupled with possible low iron intake as evidenced by low hemoglobin and hematocrit labs today. Nutrition intervention: No significant intervention required. The patient accepted education on anemia and iron-rich foods to help remedy low iron on recent labs. The patient also accepted education on calcium portions in david of a history of kidney stones and low calcium on recent labs. Will monitor weight and signs of undernutrition during admittance. Time Spent in Nutritional Counseling and Treatment: 5 min
[2025-03-05 02:57] VITALS: BP 110/51; PULSE 70; TEMP 37; O2SAT 100
[2025-03-05] MEDS: MORPHine 2 MG/ML SYR 4 MG IVP (06:17)
[2025-03-05] MEDS: CEFEPIME 2 GM in Normal Saline 100 ML IVPB (06:18)
[2025-03-05] MEDS: Normal Saline Flush 10 ML SYR IVP ×3 (06:18→08:11)
[2025-03-05 06:36] LABS: HCT 32.8 % (36.0-46.0); HGB 10.3 g/dL (11.2-15.7); MCH 25.8 pg (27.0-33.0); MCHC 31.4 % (32.0-36.0); MCV 82 fL (80-95); MPV 9.4 fL (8.0-11.0); Platelet Count 214 10^3/uL (130-400); RBC 4.00 10^6/uL (3.93-5.22); RDW 14.4 % (11.7-14.6); RDW-SD 43.1 fL; WBC 9.52 10^3/uL (4.4-10.8)
[2025-03-05 06:50] LABS: Anion Gap 9.2 mmol/L (3-11); BUN 11 mg/dL (7-18); CO2 23.8 mmol/L (21.0-32.0); Calcium 8.1 mg/dL (8.5-10.1); Chloride 104 mmol/L (98-107); Glucose 109 mg/dL (74-106); Potassium 4.5 mmol/L (3.5-5.1); Sodium 137 mmol/L (136-145)
[2025-03-05 07:23] VITALS: BP 138/83; PULSE 97; RESP 17; TEMP 37.8; O2SAT 97
[2025-03-05] MEDS: VANCOMYCIN/WATER (PEG) 1.25 GM/250 ML BAG IVPB (08:11)
[2025-03-05 08:12] VITALS: TEMP 37.8
[2025-03-05] MEDS: Enoxaparin 40 MG/0.4 ML SYR SC (08:12)
[2025-03-05] MEDS: Acetaminophen 325 MG TAB 650 MG PO (08:12)
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
[2025-03-05 11:33] VITALS: BP 131/73; PULSE 59; RESP 17; TEMP 36.7; O2SAT 97
--- NOTE | 2025-03-05 12:22 | PDOC.CMDIS ---
Date of service: 03/05/25 Time of Service: 12:22 LACE Index Scoring Tool Questions: Length of Stay (in days): 2 Was the patient admitted via the E.D.?: No E.D. Visits: 1 Answers: Total Score: 3 Risk of Readmission: Low Risk Care Management Discharge Plan Reason for Hospitalization: Severe sepsis, infected bilateral obstructing kidney Discharge Plan: Monique will be discharged to the [facility] today with no new services. Kary has a housing voucher for the [place] until 03/18/25. It is recommended she follow up with Radha Graf 03/16/25 at 13:00, urology, and discharge plan of care. SRIDHAR will coordinate an RCT ride to her pcp follow up appointment on Friday with patient permission; Kary agrees to contact CM to obtain the RCT timing on Friday, is also agreeable to CM attempting to call her. She will transport from [facility] to [facility] in [place], then to the [facility] by [facility], as coordinated by SRIDHAR. Patient/Family Education Needs: Review of discharge instruction, activity, limitation, and plan of care. Discuss ask me three. SDOH Health Related Social Needs: Health related social needs risk of homeless transpo insecurity house/econ circumstance lonely/isolated education Health related social needs details doesn't want help at this time Health related social needs details: doesn't want help at this time
== END 2025-03-05 12:18 | disposition home or self-care (01) | DRG 776 ==
PROVIDERS: Admitting Provider Family Medicine; Responsible Provider Family Medicine; Visit Provider Family Medicine
DX: O85 Puerperal sepsis (principal); R65.20 Severe sepsis without septic shock; O86.21 Infection of kidney following delivery; O99.325 Drug use complicating the puerperium; N13.6 Pyonephrosis; O98.43 Viral hepatitis complicating the puerperium; F14.10 Cocaine abuse, uncomplicated; O14.95 Unspecified pre-eclampsia, complicating the puerperium; O99.335 Smoking (tobacco) complicating the puerperium; F17.210 Nicotine dependence, cigarettes, uncomplicated; B18.2 Chronic viral hepatitis C; O99.345 Other mental disorders complicating the puerperium; F53.0 Postpartum depression
CPT/HCPCS: 00123; 36415; 80048; 85027; J1650; 80202; 83735; 99223; 99233; 99238; A0425; A0426; J0692; J2270; J3373